=== PATIENT | female | born 1990 | race Caucasian/White ===

== ENCOUNTER 2016-06-14 22:27 | Emergency (ER) | payer MEDICAID ==
[2016-06-14 23:08] LABS: Urine Drugs of Abuse Note Disclamer
[2016-06-14 23:33] LABS: Basophils % (Auto) 0.6 % (0.0-1.8); Eosinophils % (Auto) 0.6 % (0.0-4.3); Hematocrit 38.4 % (30.3-42.9); Hemoglobin 13.3 gm/dl (10.1-14.3); Mean Corpuscular HGB Conc 35 % (30-34); Mean Corpuscular Hemoglobin 31 pg (28-32); Mean Corpuscular Volume 89 fl (79-97); Platelet Count 253 K/mm3 (140-440); Red Blood Count 4.29 M/mm3 (3.65-5.03); Red Cell Distribution Width 13.7 % (13.2-15.2)
[2016-06-14 23:38] LABS: Anion Gap 21 mmol/L; Blood Urea Nitrogen 9 mg/dL (7-17); Calcium 8.5 mg/dL (8.4-10.2); Carbon Dioxide 20 mmol/L (22-30); Chloride 92.3 mmol/L (98-107); Glucose 87 mg/dL (65-100); Potassium 4.1 mmol/L (3.6-5.0); Sodium 129 mmol/L (137-145)
[2016-06-14 23:55] LABS: Bacteria,Urine 1+ /HPF (Negative); Bilirubin,Urine NEG (Negative); Blood,Urine SM (Negative); Ketones,Urine TR mg/dL (Negative); Leukocyte Esterase,Urine TR (Negative); Nitrite,Urine NEG (Negative); Protein,Urine <15 mg/dL mg/dL (Negative); RBC,Urine < 1.0 /HPF (0.0-6.0); Urobilinogen,Urine < 2.0 mg/dL (<2.0)
--- NOTE | 2016-06-15 00:11 | Emergency Department Report ---
ED Psych HPI - General Chief Complaint: Psych Stated Complaint: REINIER EVAL Time Seen by Provider: 06/14/16 23:03 Source: EMS Mode of arrival: Ambulatory Limitations: Other (psychosis) - History of Present Illness Initial Comments: 26-year-old female with a past psychiatric history presents to the hospital with significant delusions. I'm unable to get any clear history from the patient due to acute psychosis. I attempted to call the number on the chart and it is disconnected. Patient arrived via EMS and trip sheet is not available at this time for review. Per triage family states the patient off medications for weeks and has been delusional. There are no reports as to what medication she is supposed to be on. P's medical record reviewed and no previous visit for psychiatric complaints in the past. 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 No physical complaints reported patient is agitated in the ED. - Related Data Home Medications Medication Instructions Recorded Confirmed Last Taken Unobtainable 06/15/16 06/15/16 Unknown Allergies Allergy/AdvReac Type Severity Reaction Status Date / Time No Known Allergies Allergy Verified 06/15/16 01:07 ED Review of Systems ROS: Stated complaint: MH EVAL Other details as noted in HPI Comment: Unobtainable due to pts medical conditions (Limited due to patient's psychosis but no physical complaints see HPI) ED Past Medical Hx - Social History Smoking Status: Current Every Day Smoker - Medications Home Medications: Home Medications Medication Instructions Recorded Confirmed Last Taken Type Unobtainable 06/15/16 06/15/16 Unknown History ED Physical Exam - General Limitations: Other - Other Other exam information: General: No limitations, patient is alert in no acute distress Head exam: Atraumatic, normocephalic Eyes exam: Normal appearance ENT: Moist mucous membrane, normal oropharynx Neck exam: Normal inspection, full range of motion Respiratory exam: Clear to auscultation bilateral, no wheezes, rales, crackles Cardiovascular: Mild tachycardia Abdomen: Soft, nondistended, and nontender, with normal bowel sounds, no rebound, or guarding Extremity: Full range of motion normal inspection no deformity Back: Normal Inspection, full range of motion, no tenderness Neurologic: Alert, oriented x3, cranial nerves intact, no motor or sensory deficit Psychiatric: Patient agitated, active delusions possible psychosis Skin: Warm, dry, intact ED Course Vital Signs 06/14/16 06/14/16 22:44 23:39 Temperature 98.6 F Pulse Rate 109 H Respiratory 20 20 Rate Blood Pressure 116/73 [Right] O2 Sat by Pulse 100 99 Oximetry - Reevaluation(s) Reevaluation #1: 06/15/16 02:07 Gabriel and Aviva ordered to calm patient down prior to IV fluids and ct scan 06/15/16 02:07 - Consultations Consultation #1: 06/15/16 02:04 Case d/w with Dr Tsang nephrology, iF sodium does not improve with 2 L of normal saline the patient may need admission and possible treatment with oral sodium tablets ED Medical Decision Making - Lab Data Result diagrams: 06/14/16 22:58 06/14/16 22:58 Lab Results 06/14/16 06/14/16 06/14/16 Range/Units 22:47 22:47 22:58 WBC 11.0 (4.5-11.0) K/mm3 RBC 4.29 (3.65-5.03) M/mm3 Hgb 13.3 (10.1-14.3) gm/dl Hct 38.4 (30.3-42.9) % MCV 89 (79-97) fl MCH 31 (28-32) pg MCHC 35 H (30-34) % RDW 13.7 (13.2-15.2) % Plt Count 253 (140-440) K/mm3 Lymph % (Auto) 18.1 (13.4-35.0) % [place] % (Auto) 7.5 H (0.0-7.3) % Eos % (Auto) 0.6 (0.0-4.3) % Baso % (Auto) 0.6 (0.0-1.8) % Lymph # 2.0 (1.2-5.4) K/mm3 [place] # 0.8 (0.0-0.8) K/mm3 Eos # 0.1 (0.0-0.4) K/mm3 Baso # 0.1 (0.0-0.1) K/mm3 Seg Neutrophils % 73.2 H (40.0-70.0) % Seg Neutrophils # 8.0 H (1.8-7.7) K/mm3 Sodium (137-145) mmol/L Potassium (3.6-5.0) mmol/L Chloride (98-107) mmol/L Carbon Dioxide (22-30) mmol/L Anion Gap mmol/L BUN (7-17) mg/dL Creatinine (0.7-1.2) mg/dL Estimated GFR ml/min BUN/Creatinine Ratio % Glucose (65-100) mg/dL Calcium (8.4-10.2) mg/dL Total Creatine Kinase (30-135) units/L HCG, Qual (Negative) Urine Color Straw (Yellow) Urine Turbidity Clear (Clear) Urine pH 6.0 (5.0-7.0) Ur Specific [place] 1.001 L (1.003-1.030) Urine Protein <15 mg/dl (Negative) mg/dL Urine Glucose (UA) Neg (Negative) mg/dL Urine Ketones Tr (Negative) mg/dL Urine Blood Sm (Negative) Urine Nitrite Neg (Negative) Ur Reducing Substances Not Reportable Urine Bilirubin Neg (Negative) Urine Ictotest Not Reportable Urine Urobilinogen < 2.0 (<2.0) mg/dL Ur Leukocyte Esterase Tr (Negative) Urine WBC (Auto) 1.0 (0.0-6.0) /HPF Urine RBC (Auto) < 1.0 (0.0-6.0) /HPF U Epithel Cells (Auto) 1.0 (0-13.0) /HPF Urine Bacteria (Auto) 1+ (Negative) /HPF Calcium Oxalate Crystal 1+ Urine HCG, Qual Negative (Negative) Salicylates (2.8-20.0) mg/dL Urine Opiates Screen Presumptive negative Urine Methadone Screen Presumptive negative Acetaminophen (10.0-30.0) ug/mL Ur Barbiturates Screen Presumptive negative Ur Phencyclidine Scrn Presumptive negative Ur Amphetamines Screen Presumptive positive U Benzodiazepines Scrn Presumptive negative Urine Cocaine Screen Presumptive negative U Marijuana (THC) Screen Presumptive negative Drugs of Abuse Note Disclamer Plasma/Serum Alcohol (0-0.07) gm% 06/14/16 06/14/16 06/14/16 Range/Units 22:58 22:58 22:58 WBC (4.5-11.0) K/mm3 RBC (3.65-5.03) M/mm3 Hgb (10.1-14.3) gm/dl Hct (30.3-42.9) % MCV (79-97) fl MCH (28-32) pg MCHC (30-34) % RDW (13.2-15.2) % Plt Count (140-440) K/mm3 Lymph % (Auto) (13.4-35.0) % [place] % (Auto) (0.0-7.3) % Eos % (Auto) (0.0-4.3) % Baso % (Auto) (0.0-1.8) % Lymph # (1.2-5.4) K/mm3 [place] # (0.0-0.8) K/mm3 Eos # (0.0-0.4) K/mm3 Baso # (0.0-0.1) K/mm3 Seg Neutrophils % (40.0-70.0) % Seg Neutrophils # (1.8-7.7) K/mm3 Sodium 129 L (137-145) mmol/L Potassium 4.1 (3.6-5.0) mmol/L Chloride 92.3 L (98-107) mmol/L Carbon Dioxide 20 L (22-30) mmol/L Anion Gap 21 mmol/L BUN 9 (7-17) mg/dL Creatinine 0.6 L (0.7-1.2) mg/dL Estimated GFR > 60 ml/min BUN/Creatinine Ratio 15.00 % Glucose 87 (65-100) mg/dL Calcium 8.5 (8.4-10.2) mg/dL Total Creatine Kinase (30-135) units/L HCG, Qual (Negative) Urine Color (Yellow) Urine Turbidity (Clear) Urine pH (5.0-7.0) Ur Specific [place] (1.003-1.030) Urine Protein (Negative) mg/dL Urine Glucose (UA) (Negative) mg/dL Urine Ketones (Negative) mg/dL Urine Blood (Negative) Urine Nitrite (Negative) Ur Reducing Substances Urine Bilirubin (Negative) Urine Ictotest Urine Urobilinogen (<2.0) mg/dL Ur Leukocyte Esterase (Negative) Urine WBC (Auto) (0.0-6.0) /HPF Urine RBC (Auto) (0.0-6.0) /HPF U Epithel Cells (Auto) (0-13.0) /HPF Urine Bacteria (Auto) (Negative) /HPF Calcium Oxalate Crystal Urine HCG, Qual (Negative) Salicylates < 0.3 L (2.8-20.0) mg/dL Urine Opiates Screen Urine Methadone Screen Acetaminophen < 15.0 (10.0-30.0) ug/mL Ur Barbiturates Screen Ur Phencyclidine Scrn Ur Amphetamines Screen U Benzodiazepines Scrn Urine Cocaine Screen U Marijuana (THC) Screen Drugs of Abuse Note Plasma/Serum Alcohol (0-0.07) gm% 06/14/16 06/14/16 06/14/16 Range/Units 22:58 22:58 22:58 WBC (4.5-11.0) K/mm3 RBC (3.65-5.03) M/mm3 Hgb (10.1-14.3) gm/dl Hct (30.3-42.9) % MCV (79-97) fl MCH (28-32) pg MCHC (30-34) % RDW (13.2-15.2) % Plt Count (140-440) K/mm3 Lymph % (Auto) (13.4-35.0) % [place] % (Auto) (0.0-7.3) % Eos % (Auto) (0.0-4.3) % Baso % (Auto) (0.0-1.8) % Lymph # (1.2-5.4) K/mm3 [place] # (0.0-0.8) K/mm3 Eos # (0.0-0.4) K/mm3 Baso # (0.0-0.1) K/mm3 Seg Neutrophils % (40.0-70.0) % Seg Neutrophils # (1.8-7.7) K/mm3 Sodium (137-145) mmol/L Potassium (3.6-5.0) mmol/L Chloride (98-107) mmol/L Carbon Dioxide (22-30) mmol/L Anion Gap mmol/L BUN (7-17) mg/dL Creatinine (0.7-1.2) mg/dL Estimated GFR ml/min BUN/Creatinine Ratio % Glucose (65-100) mg/dL Calcium (8.4-10.2) mg/dL Total Creatine Kinase 1606 H (30-135) units/L HCG, Qual Negative (Negative) Urine Color (Yellow) Urine Turbidity (Clear) Urine pH (5.0-7.0) Ur Specific [place] (1.003-1.030) Urine Protein (Negative) mg/dL Urine Glucose (UA) (Negative) mg/dL Urine Ketones (Negative) mg/dL Urine Blood (Negative) Urine Nitrite (Negative) Ur Reducing Substances Urine Bilirubin (Negative) Urine Ictotest Urine Urobilinogen (<2.0) mg/dL Ur Leukocyte Esterase (Negative) Urine WBC (Auto) (0.0-6.0) /HPF Urine RBC (Auto) (0.0-6.0) /HPF U Epithel Cells (Auto) (0-13.0) /HPF Urine Bacteria (Auto) (Negative) /HPF Calcium Oxalate Crystal Urine HCG, Qual (Negative) Salicylates (2.8-20.0) mg/dL Urine Opiates Screen Urine Methadone Screen Acetaminophen (10.0-30.0) ug/mL Ur Barbiturates Screen Ur Phencyclidine Scrn Ur Amphetamines Screen U Benzodiazepines Scrn Urine Cocaine Screen U Marijuana (THC) Screen Drugs of Abuse Note Plasma/Serum Alcohol < 0.01 (0-0.07) gm% - Medical Decision Making 1013 and transfer form has been signed. It appears the patient has a psychiatric history. Unable to verify that with next of kin or previous medical record at this time. Psychiatric consult pending. Patient has mild hyponatremia cause unidentified this time. Awaiting urinalysis electrolyte results as of 1:55 AM. Patient's UDS positive for amphetamine spur unsure if she is abusing amphetamine's or one of her prescribed medications causing a false positive PT s/o to Dr spaulding f/u ct head (unable to verify previous psych hx) f/u repeat bmp after 2 L NS if no improvement in NA, CHL, CK, pt will need admission - Differential Diagnosis psychosis, delusion, bipolar Critical Care Time: No Critical care attestation.: If time is entered above; I have spent that time in minutes in the direct care of this critically ill patient, excluding procedure time. ED Disposition Clinical Impression: Psychosis, Delusions, Hyponatremia, Elevated CK, Amphetamine abuse Disposition: DC/TX PSY HOSP/PSY UNIT Is pt being admited?: No Condition: Stable Time of Disposition: 02:10 (s/o Dr Spaulding)
[2016-06-15] MEDS ORDERED: BENADRYL IM ONE (00:12)
[2016-06-15] MEDS ORDERED: GEODON IM ONE ×2 (00:12→00:13)
[2016-06-15] MEDS ORDERED: NACL 0.9% 1000 ML 1,000 ML IV ONE ×2 (00:14→01:57)
[2016-06-15] MEDS ORDERED: WATER FOR INJ (PF) 10 ML ONE (01:00)
--- NOTE | 2016-06-15 03:12 | Cat Scan Report ---
FINAL REPORT EXAM: CT HEAD/BRAIN WO CON HISTORY: delusions, psychosis TECHNIQUE: Noncontrast CT axial images of the brain. PRIORS: None. FINDINGS: No parenchymal mass, mass effect, hemorrhage, midline shift or hydrocephalus. No evidence of acute cortical infarct. No abnormal, extra-axial fluid or air collection. Osseous calvarium grossly intact. IMPRESSION: 1. No acute intracranial findings.
[2016-06-15 04:35] LABS: Anion Gap 18 mmol/L; Blood Urea Nitrogen 7 mg/dL (7-17); Calcium 7.9 mg/dL (8.4-10.2); Carbon Dioxide 21 mmol/L (22-30); Chloride 106.5 mmol/L (98-107); Creatine Kinase 1356 units/L (30-135); Glucose 76 mg/dL (65-100); Sodium 141 mmol/L (137-145)
--- NOTE | 2016-06-15 05:15 | Event Note ---
Date: 06/15/16 Laboratory studies reviewed and appreciated. Sodium has normalized. Creatinine kinase is decreasing. Noncontrast CT scan of brain is negative. Urinalysis positive for amphetamines. The creatinine kinase will continue to decrease on its own. The sodium has appropriately normalized. Vital signs appear to be stable. At this point in time, it does not appear that there is any medical contraindication to psychiatric medicines as evaluation/ consultation. Crisis team was informed. Vital Signs 06/14/16 06/14/16 06/15/16 22:44 23:39 03:36 Temperature 98.6 F 98.0 F Pulse Rate 109 H 80 Respiratory 20 20 20 Rate Blood Pressure 116/73 163/53 [Right] O2 Sat by Pulse 100 99 100 Oximetry Temp Pulse Resp BP Pulse Ox 98.0 F 80 20 163/53 100 06/15/16 03:36 06/15/16 03:36 06/15/16 03:36 06/15/16 03:36 06/15/16 03:36 Vital Signs 06/14/16 06/14/16 06/15/16 22:44 23:39 03:36 Temperature 98.6 F 98.0 F Pulse Rate 109 H 80 Respiratory 20 20 20 Rate Blood Pressure 116/73 163/53 [Right] O2 Sat by Pulse 100 99 100 Oximetry
[2016-06-15 09:06] VITALS: BP 116/72
== END 2016-06-15 14:30 ==
LOC: EEVIPCON 22:27 → ED 22:27
DX: F22 Delusional disorders (principal); F29 Unspecified psychosis not due to a substance or known physiological condition; E87.1 Hypo-osmolality and hyponatremia; F15.10 Other stimulant abuse, uncomplicated; F17.200 Nicotine dependence, unspecified, uncomplicated
CPT/HCPCS: 36415; 70450; 80048; 80307; 81001; 81025; 82550; 82570; 83930; 83935; 84300; 84703; 85025; 96360; 96361; 96372; 99285; G0480; J1200; J3486; J7030; 80320

== ENCOUNTER 2016-10-07 03:27 | Emergency (ER) | payer MEDICAID ==
[2016-10-07 04:24] LABS: Basophils % (Auto) 0.6 % (0.0-1.8); Eosinophils % (Auto) 3.7 % (0.0-4.3); Hematocrit 41.4 % (30.3-42.9); Hemoglobin 14.1 gm/dl (10.1-14.3); Mean Corpuscular HGB Conc 34 % (30-34); Mean Corpuscular Hemoglobin 30 pg (28-32); Mean Corpuscular Volume 89 fl (79-97); Platelet Count 278 K/mm3 (140-440); Red Blood Count 4.67 M/mm3 (3.65-5.03); White Blood Count 11.6 K/mm3 (4.5-11.0)
[2016-10-07 04:32] LABS: Anion Gap 19 mmol/L; Blood Urea Nitrogen 9 mg/dL (7-17); Calcium 9.3 mg/dL (8.4-10.2); Carbon Dioxide 23 mmol/L (22-30); Chloride 95.2 mmol/L (98-107); Glucose 78 mg/dL (65-100); Sodium 133 mmol/L (137-145)
--- NOTE | 2016-10-07 07:04 | Emergency Department Report ---
HPI - General Chief Complaint: Psych Time Seen by Provider: 10/07/16 06:54 - HPI HPI: Room 11 The patient is a 26-year-old female presenting with a chief complaint of auditory hallucinations. Patient has a history of bipolar disorder. The patient states she's had auditory hallucinations since age 15. Patient states today while walking to the hospital. 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 The patient states she last took her Zyprexa yesterday. Patient states she came to the emergency department to find out if she was . Patient denies any other complaints Location: [see above] Duration: [see above] Quality: Auditory hallucination Severity: Mild Modifying factors: [see above] Context: [see above] Mode of transportation: [not driving] ED Past Medical Hx - Past Medical History Previous Medical History?: Yes Hx Psychiatric Treatment: Yes (BIPOLAR) - Surgical History Past Surgical History?: No Additional Surgical History: Right arm, right hip - Family History Family history: no significant - Social History Smoking Status: Current Every Day Smoker (1/2 pack per day) Substance Use Type: Alcohol (occasional), Methamphetamines (last use approximately 2 months ago) - Medications Home Medications: Home Medications Medication Instructions Recorded Confirmed Last Taken Type Unobtainable 06/15/16 06/15/16 Unknown History ED Review of Systems ROS: Stated complaint: VAGINAL ODOR Other details as noted in HPI Comment: All other systems reviewed and negative Constitutional: denies: chills, fever Eyes: denies: eye pain, eye discharge, vision change ENT: denies: ear pain, throat pain Respiratory: denies: cough, shortness of breath, wheezing Cardiovascular: denies: chest pain, palpitations Endocrine: no symptoms reported Gastrointestinal: denies: abdominal pain, nausea, diarrhea Genitourinary: denies: urgency, dysuria, discharge Musculoskeletal: denies: back pain, joint swelling, arthralgia Skin: denies: rash, lesions Neurological: denies: headache, weakness, paresthesias Psychiatric: auditory hallucinations. denies: homicidal thoughts, suicidal thoughts Hematological/Lymphatic: denies: easy bleeding, easy bruising Physical Exam - Physical Exam Vital Signs: Vital Signs 10/07/16 03:33 Temperature 98.8 F Pulse Rate 109 H Respiratory 18 Rate Blood Pressure 115/69 O2 Sat by Pulse 98 Oximetry Physical Exam: GENERAL: The patient is well-developed well-nourished female lying on stretcher not appearing to be in acute distress. [] HEENT: Normocephalic. Atraumatic. Extraocular motions are intact. Patient has moist mucous membranes. NECK: Supple. Trachea midline CHEST/LUNGS: Clear to auscultation. There is no respiratory distress noted. HEART/CARDIOVASCULAR: Regular. There is no tachycardia. There is no gallop rub or murmur. ABDOMEN: Abdomen is soft, nontender. Patient has normal bowel sounds. There is no abdominal distention. SKIN: There is no rash. There is no edema. There is no diaphoresis. NEURO: The patient is awake, alert, and oriented. The patient is cooperative. The patient has normal speech MUSCULOSKELETAL: There is no evidence of acute injury. ED Course Vital Signs 10/07/16 03:33 Temperature 98.8 F Pulse Rate 109 H Respiratory 18 Rate Blood Pressure 115/69 O2 Sat by Pulse 98 Oximetry ED Medical Decision Making - Lab Data Result diagrams: 10/07/16 04:04 10/07/16 04:04 Laboratory Tests 10/07/16 10/07/16 10/07/16 04:04 04:04 04:04 WBC RBC Hgb Hct MCV MCH MCHC RDW Plt Count Lymph % (Auto) [place] % (Auto) Eos % (Auto) Baso % (Auto) Lymph # [place] # Eos # Baso # Seg Neutrophils % Seg Neutrophils # Sodium 133 L Potassium 4.0 Chloride 95.2 L Carbon Dioxide 23 Anion Gap 19 BUN 9 Creatinine 0.6 L Estimated GFR > 60 BUN/Creatinine Ratio 15.00 Glucose 78 Calcium 9.3 HCG, Qual Negative Urine Color Urine Turbidity Urine pH Ur Specific [place] Urine Protein Urine Glucose (UA) Urine Ketones Urine Blood Urine Nitrite Urine Bilirubin Urine Urobilinogen Ur Leukocyte Esterase Urine WBC (Auto) Urine RBC (Auto) U Epithel Cells (Auto) Urine Bacteria (Auto) Amorphous Crystals Urine Opiates Screen Urine Methadone Screen Ur Barbiturates Screen Ur Phencyclidine Scrn Ur Amphetamines Screen U Benzodiazepines Scrn Urine Cocaine Screen U Marijuana (THC) Screen Drugs of Abuse Note Plasma/Serum Alcohol < 0.01 10/07/16 10/07/16 10/07/16 04:04 05:00 05:00 WBC 11.6 H RBC 4.67 Hgb 14.1 Hct 41.4 MCV 89 MCH 30 MCHC 34 RDW 14.0 Plt Count 278 Lymph % (Auto) 20.1 [place] % (Auto) 7.2 Eos % (Auto) 3.7 Baso % (Auto) 0.6 Lymph # 2.3 [place] # 0.8 Eos # 0.4 Baso # 0.1 Seg Neutrophils % 68.4 Seg Neutrophils # 7.9 H Sodium Potassium Chloride Carbon Dioxide Anion Gap BUN Creatinine Estimated GFR BUN/Creatinine Ratio Glucose Calcium HCG, Qual Urine Color Colorless Urine Turbidity Clear Urine pH 6.0 Ur Specific [place] 1.001 L Urine Protein <15 mg/dl Urine Glucose (UA) Neg Urine Ketones Neg Urine Blood Sm Urine Nitrite Neg Urine Bilirubin Neg Urine Urobilinogen < 2.0 Ur Leukocyte Esterase Lg Urine WBC (Auto) 4.0 Urine RBC (Auto) 2.0 U Epithel Cells (Auto) 2.0 Urine Bacteria (Auto) 2+ Amorphous Crystals Few Urine Opiates Screen Presumptive negative Urine Methadone Screen Presumptive negative Ur Barbiturates Screen Presumptive negative Ur Phencyclidine Scrn Presumptive negative Ur Amphetamines Screen Presumptive negative U Benzodiazepines Scrn Presumptive negative Urine Cocaine Screen Presumptive negative U Marijuana (THC) Screen Presumptive negative Drugs of Abuse Note Disclamer Plasma/Serum Alcohol - Differential Diagnosis bipolar disorder Critical care attestation.: If time is entered above; I have spent that time in minutes in the direct care of this critically ill patient, excluding procedure time. ED Disposition Clinical Impression: Bipolar disorder, Auditory hallucinations Disposition: DC-01 TO HOME OR SELFCARE Is pt being admited?: No Does the pt Need Aspirin: No Condition: Stable Additional Instructions: Return to the emergency department immediately should you develop worsening symptoms, fever, inability to tolerate food or liquid or any other concerns. Referrals: PRIMARY CARE [Primary Care Provider] - 3-5 Days Time of Disposition: 08:14
[2016-10-07 07:15] LABS: Urine Drugs of Abuse Note Disclamer
[2016-10-07 07:26] LABS: Bacteria,Urine 2+ /HPF (Negative); Bilirubin,Urine NEG (Negative); Blood,Urine SM (Negative); Ketones,Urine NEG (Negative); Leukocyte Esterase,Urine LG (Negative); Nitrite,Urine NEG (Negative); Protein,Urine <15 mg/dL mg/dL (Negative); Urobilinogen,Urine < 2.0 mg/dL (<2.0)
[2016-10-07 09:28] VITALS: BP 112/68
== END 2016-10-07 08:30 | disposition home or self-care (01) ==
LOC: ED 03:27
DX: F31.9 Bipolar disorder, unspecified (principal); F17.210 Nicotine dependence, cigarettes, uncomplicated; F15.10 Other stimulant abuse, uncomplicated
CPT/HCPCS: 36415; 80048; 80307; 81001; 84703; 85025; 99284; G0480; 80320

== ENCOUNTER 2017-01-26 19:25 | Emergency (ER) | payer MEDICAID ==
[2017-01-26 19:31] VITALS: BP 140/80
== END 2017-01-26 21:00 | disposition left against medical advice (07) ==
LOC: ED 19:25
DX: Z53.21 Procedure and treatment not carried out due to patient leaving prior to being seen by health care provider (principal)

== ENCOUNTER 2018-09-10 09:50 | Emergency (ER) | payer MEDICAID ==
[2018-09-10 10:32] LABS: Basophils # (Auto) 0.1 K/mm3 (0.0-0.1); Basophils % (Auto) 0.7 % (0.0-1.8); Eosinophils # (Auto) 0.3 K/mm3 (0.0-0.4); Eosinophils % (Auto) 3.3 % (0.0-4.3); Hematocrit 41.9 % (30.3-42.9); Hemoglobin 14.3 gm/dl (10.1-14.3); Lymphocytes # (Auto) 2.7 K/mm3 (1.2-5.4); Mean Corpuscular HGB Conc 34 % (30-34); Mean Corpuscular Volume 87 fl (79-97); Monocytes # (Auto) 0.5 K/mm3 (0.0-0.8); Monocytes % (Auto) 4.6 % (0.0-7.3); Platelet Count 314 K/mm3 (140-440); Red Blood Count 4.81 M/mm3 (3.65-5.03); Red Cell Distribution Width 14.4 % (13.2-15.2)
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
[2018-09-10 11:10] LABS: BUN/Creatinine Ratio 6; Blood Urea Nitrogen 5 mg/dL (7-17); Calcium 8.9 mg/dL (8.4-10.2); Hemolysis Index 49
[2018-09-11 09:29] LABS: Bilirubin,Urine NEG (Negative); Blood,Urine NEG (Negative); Color,Urine Yellow (Yellow); Mucus,Urine 3+ /HPF; Protein,Urine <15 mg/dL mg/dL (Negative); Urobilinogen,Urine < 2.0 mg/dL (<2.0)
[2018-09-11 09:52] LABS: Amphetamine Screen,Urine PRESUMPTIVE NEGATIVE; Benzodiazepines Screen,Urine PRESUMPTIVE NEGATIVE; Cannabinoid Screen,Urine PRESUMPTIVE NEGATIVE; Cocaine Screen,Urine PRESUMPTIVE NEGATIVE; Methadone Screen,Urine PRESUMPTIVE NEGATIVE; Opiate Screen,Urine PRESUMPTIVE NEGATIVE
[2018-09-11 12:06] VITALS: BP 105/53
[2018-09-11 12:21] LABS: HCG Qualitative,Urine Negative (Negative)
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
[2018-09-11] MEDS ORDERED: ABILIFY PO SCH (13:00)
== END 2018-09-11 16:59 ==
LOC: ED 09:50
DX: F31.9 Bipolar disorder, unspecified (principal); F20.9 Schizophrenia, unspecified; Z89.612 Acquired absence of left leg above knee; Z87.891 Personal history of nicotine dependence; Z79.899 Other long term (current) drug therapy
CPT/HCPCS: 36415; 80048; 80307; 80320; 81001; 81025; 84450; 84460; 85025; 99285; G0480

== ENCOUNTER 2018-10-16 00:28 | Emergency (ER) | payer MEDICAID ==
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
[2018-10-16] MEDS ORDERED: DESYREL PO ONE (01:16)
[2018-10-16 01:35] LABS: Bilirubin,Urine NEG (Negative); Blood,Urine NEG (Negative); Color,Urine Colorless (Yellow); Protein,Urine <15 mg/dL mg/dL (Negative); Urobilinogen,Urine < 2.0 mg/dL (<2.0)
[2018-10-16 01:44] LABS: Basophils # (Auto) 0.1 K/mm3 (0.0-0.1); Eosinophils # (Auto) 0.4 K/mm3 (0.0-0.4); Eosinophils % (Auto) 4.4 % (0.0-4.3); Hemoglobin 14.6 gm/dl (10.1-14.3); Lymphocytes # (Auto) 2.2 K/mm3 (1.2-5.4); Lymphocytes % (Auto) 22.6 % (13.4-35.0); Mean Corpuscular HGB Conc 35 % (30-34); Mean Corpuscular Volume 86 fl (79-97); Monocytes # (Auto) 0.6 K/mm3 (0.0-0.8); Monocytes % (Auto) 6.7 % (0.0-7.3); Platelet Count 302 K/mm3 (140-440); Red Blood Count 4.87 M/mm3 (3.65-5.03); Red Cell Distribution Width 14.4 % (13.2-15.2)
[2018-10-16 02:01] LABS: Amphetamine Screen,Urine PRESUMPTIVE NEGATIVE; Benzodiazepines Screen,Urine PRESUMPTIVE NEGATIVE; Cannabinoid Screen,Urine PRESUMPTIVE NEGATIVE; Cocaine Screen,Urine PRESUMPTIVE NEGATIVE; Methadone Screen,Urine PRESUMPTIVE NEGATIVE; Opiate Screen,Urine PRESUMPTIVE NEGATIVE
[2018-10-16 02:04] LABS: BUN/Creatinine Ratio 10; Blood Urea Nitrogen 6 mg/dL (7-17); Calcium 8.9 mg/dL (8.4-10.2); Hemolysis Index 6
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
[2018-10-16] MEDS ORDERED: MELATONIN PO SCH (22:00)
[2018-10-17 10:38] VITALS: BP 117/66
--- NOTE | 2018-10-17 12:44 | Progress Note ---
Subjective - Reason for Consult Consult date: 10/17/18 Reason for consult: Psychiatry Follow-up - Chief Complaint Chief complaint: "I know I have to do better" 28 y.o. female who presented to the ER with acute psychosis. This patient is known to me. Today the patient was cam and cooperative during the assessment. She stated that she should not have called the police prior to her arrival to the ER. She stated that she was upset with something at her home and could have handled it in a better way. She denies being "Aimee Bailey." She denies that someone or something is after her. She stated that she plan to follow up with her outpatient psychiatrist once discharged. She stated that she got sleep last night. She denies SI/HI's and AVH's. Mental Status Exam - Vital signs Last Vital Signs Temp 98.5 F 10/17/18 10:37 Pulse 83 10/17/18 10:37 Resp 18 10/17/18 10:37 BP 117/66 10/17/18 10:37 Pulse Ox 98 10/17/18 10:37 - Exam Narrative exam: MSE: Appearance: calm Behavior: regular eye contact Speech: somewhat hyper verbal Mood: "okay" Affect: congruent to mood Thought Process: circumstantial Thought Content: denies SI/HI's and AVH's Motor Activity: sitting up in bed Cognition: A/O x3 Insight: fair Judgment: fair Assessment and Plan Impression: Unspecified Psychosis. The patient's psychosis have resolved. The patient was calm and cooperative during the assessment. UDS is negative. DDx: Bipolar DO with psyhcosis, Delusional DO Recommendation/Plan: Rescind 1013. The patient receive the monthly Abilify injection. Dispo: The patient can follow up with [facility] for outpatient psy services. Will staff with Dr Marcella Hadley.
== END 2018-10-17 16:51 ==
LOC: EEVIPCON 00:28 → ED 00:28
DX: F23 Brief psychotic disorder (principal); Z89.612 Acquired absence of left leg above knee; Z79.899 Other long term (current) drug therapy
CPT/HCPCS: 36415; 80048; 80307; 80320; 81001; 84703; 85025; 99284; G0480

== ENCOUNTER 2018-11-07 06:25 | Emergency (ER) | payer MEDICAID ==
[2018-11-07 07:12] LABS: Bilirubin,Urine NEG (Negative); Blood,Urine SM (Negative); Color,Urine Colorless (Yellow); Mucus,Urine FEW /HPF; Protein,Urine <15 mg/dL mg/dL (Negative); RBC,Urine < 1.0 /HPF (0.0-6.0); Urobilinogen,Urine < 2.0 mg/dL (<2.0); WBC,Urine < 1.0 /HPF (0.0-6.0)
[2018-11-07 07:20] LABS: Amphetamine Screen,Urine PRESUMPTIVE NEGATIVE; Benzodiazepines Screen,Urine PRESUMPTIVE NEGATIVE; Cannabinoid Screen,Urine PRESUMPTIVE NEGATIVE; Cocaine Screen,Urine PRESUMPTIVE NEGATIVE; Methadone Screen,Urine PRESUMPTIVE NEGATIVE; Opiate Screen,Urine PRESUMPTIVE NEGATIVE
[2018-11-07 07:28] LABS: Basophils # (Auto) 0.1 K/mm3 (0.0-0.1); Eosinophils # (Auto) 0.2 K/mm3 (0.0-0.4); Hematocrit 42.7 % (30.3-42.9); Hemoglobin 14.4 gm/dl (10.1-14.3); Lymphocytes # (Auto) 2.4 K/mm3 (1.2-5.4); Lymphocytes % (Auto) 28.9 % (13.4-35.0); Mean Corpuscular HGB Conc 34 % (30-34); Mean Corpuscular Volume 86 fl (79-97); Monocytes # (Auto) 0.6 K/mm3 (0.0-0.8); Monocytes % (Auto) 6.6 % (0.0-7.3); Platelet Count 329 K/mm3 (140-440); Red Blood Count 4.96 M/mm3 (3.65-5.03); Red Cell Distribution Width 14.2 % (13.2-15.2)
[2018-11-07 09:51] LABS: BUN/Creatinine Ratio 9; Blood Urea Nitrogen 7 mg/dL (7-17); Hemolysis Index 61
[2018-11-07] MEDS ORDERED: ALUM-MAG HYDROXIDE-SIMETHICONE 200-200-20MG/5ML ORAL LIQD 30 ML PO PRN (10:39)
[2018-11-07] MEDS ORDERED: MAGNESIUM HYDROXIDE (MOM) ORAL LIQD UDC PO PRN (10:39)
[2018-11-07] MEDS ORDERED: ACETAMINOPHEN 325 MG TAB PO PRN (10:39)
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
[2018-11-07] MEDS ORDERED: traZODone 50 MG TAB PO PRN (10:49)
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
[2018-11-07 12:26] LABS: Alanine Aminotransferase 24 units/L (7-56)
[2018-11-07] MEDS ORDERED: traZODone 50 MG TAB PO SCH (22:00)
[2018-11-07] MEDS: DIVALPROEX ER 500 MG TAB PO SCH (22:40)
[2018-11-08 07:25] LABS: Chol/HDL Ratio 4.08 %
--- NOTE | 2018-11-08 14:01 | Progress Note ---
Subjective - Reason for Consult Consult date: 11/08/18 Reason for consult: Psychiatric Follow-up Evaluation - Chief Complaint Chief complaint: "I'm alright." Patient is a 28-year-old female who presented to the ER for acute psychosis. The patient is known to me. Today the patient is cooperative but anxious during the assessment. She states, " I'm here because I was hearing voices. They were telling me this is where it's going to end and there are going to be zombies." She continues to have tangential thought process. Patient denies SI/HI's and delusions. Mental Status Exam - Vital signs Last Vital Signs Temp 98.2 F 11/08/18 07:00 Pulse 95 H 11/08/18 07:00 Resp 20 11/08/18 07:00 BP 113/77 11/08/18 07:00 Pulse Ox 93 11/08/18 07:00 - Exam Narrative exam: Mental Status Exam: Appearance: disheveled Behavior: regular eye contact Speech: regular rate and tone Mood: " I'm alright."; Labile Affect: congruent to mood Thought Process: tangential Thought Content: denies SI/HI's and VH's; + AH's and paranoid delusions Motor Activity: sitting up in bed Cognition: A/O x 3 Insight: poor Judgment: poor Assessment and Plan Impression: Unspecified Mood with psy features. The patient is cooperative but anxious during the assessment. She continues to have tangential thought process. Attempting to minimize psychosis. UDS is negative. DDx: Bipolar DO with psychosis, Delusional DO Recommendation/Plan: 1. Continue 1013. 2. Continue Zyprexa 5 mg PO HS for psychosis/mood, Trazodone 50 mg PO HS PRN for sleep, and Depakote 1000 mg PO HS for mood. The patient's Depakote frequency will be changed to BID on 11/08/2018. Attempted to discuss possible metabolic side effects of Zyprexa with the patient. Baseline A1c/Lipid Panel ordered for the AM. Disposition: The patient was referred to inpatient psychiatric services. Will staff with Dr. Marcella Hadley.
[2018-11-08] MEDS: DIVALPROEX ER 500 MG TAB PO SCH (23:00)
[2018-11-09 09:36] VITALS: BP 137/68
--- NOTE | 2018-11-09 09:36 | Progress Note ---
Subjective - Reason for Consult Consult date: 11/09/18 Reason for consult: Psychiatry Follow-up - Chief Complaint Chief complaint: "I would like to leave" Patient is a 28-year-old female who presented to the ER for acute psychosis. The patient is known to me. Today the patient was calm and cooperative during the assessment. She is more organized. She denies seeing objects/images when asked. She that she plan to follow up with outpatient psy services. She denies SI/HI's and AVH's. She denies any side effects from her medication. Mental Status Exam - Vital signs Last Vital Signs Temp 98.6 F 11/08/18 20:00 Pulse 87 11/08/18 20:00 Resp 16 11/08/18 20:00 BP 97/54 11/08/18 20:00 Pulse Ox 100 11/08/18 20:00 - Exam Narrative exam: MSE: Appearance: calm, cooperative Behavior: regular eye contact Speech: regular rate and tone Mood: "okay" Affect: congruent to mood Thought Process: more organized Thought Content: denies SI/HI's and AVH's Motor Activity: sitting up in bed Cognition: A/O x3 Insight: fair Judgment: fair Assessment and Plan Impression: Unspecified Mood with psy features. No overt psychosis with the patient. The patient was calm and cooperative during the assessment. UDS is negative. DDx: Bipolar DO with psychosis, Delusional DO Recommendation/Plan: Rescind 1013. Continue Zyprexa 5 mg PO HS for psychosis/mood, Trazodone 50 mg PO HS PRN for sleep, and Depakote 500 mg PO BID for mood. Discussed possible metabolic side effects of Zyprexa with the patient, she verbalized understanding. Dispo: The patient can follow up with [facility] ([facility]) for outpatient psy services. Staffed with Dr Marcella Hadley.
[2018-11-09] MEDS ORDERED: DIVALPROEX ER 500 MG TAB PO SCH (10:00)
== END 2018-11-09 15:11 | disposition home or self-care (01) ==
LOC: EEVIPCON 06:25 → ED 06:25
DX: F39 Unspecified mood [affective] disorder (principal); F17.200 Nicotine dependence, unspecified, uncomplicated; F20.0 Paranoid schizophrenia; F31.9 Bipolar disorder, unspecified; Z98.890 Other specified postprocedural states; Z79.899 Other long term (current) drug therapy
CPT/HCPCS: 36415; 80048; 80061; 80164; 80307; 80320; 81001; 83036; 84075; 84450; 84460; 84703; 85025; G0480

== ENCOUNTER 2019-01-16 19:21 | Emergency (ER) | payer MEDICAID ==
[2019-01-16] MEDS ORDERED: LORazepam 2 MG/ML VIAL IM PRN (20:28)
[2019-01-16] MEDS ORDERED: HALOPERIDOL LACTATE 5 MG/1 ML INJ IM PRN (20:28)
[2019-01-16] MEDS ORDERED: ZIPRASIDONE MESYLATE 20 MG VIAL IM ONE (20:29)
[2019-01-16 21:24] LABS: Hemoglobin 14.6 gm/dl (10.1-14.3); Mean Corpuscular HGB Conc 34 % (30-34); Mean Corpuscular Volume 88 fl (79-97); Platelet Count 321 K/mm3 (140-440); Red Blood Count 4.89 M/mm3 (3.65-5.03); Red Cell Distribution Width 14.3 % (13.2-15.2)
[2019-01-16 21:34] LABS: BUN/Creatinine Ratio 12; Blood Urea Nitrogen 7 mg/dL (7-17); Calcium 9.4 mg/dL (8.4-10.2); Hemolysis Index 19
[2019-01-16 21:43] LABS: Bilirubin,Urine NEG (Negative); Blood,Urine SM (Negative); Calcium Oxalate Crystals,Urine FEW; Color,Urine Straw (Yellow); Protein,Urine <15 mg/dL mg/dL (Negative); Urobilinogen,Urine < 2.0 mg/dL (<2.0)
[2019-01-16 21:48] LABS: Amphetamine Screen,Urine PRESUMPTIVE NEGATIVE; Benzodiazepines Screen,Urine PRESUMPTIVE NEGATIVE; Cannabinoid Screen,Urine PRESUMPTIVE NEGATIVE; Cocaine Screen,Urine PRESUMPTIVE NEGATIVE; Methadone Screen,Urine PRESUMPTIVE NEGATIVE; Opiate Screen,Urine PRESUMPTIVE NEGATIVE
[2019-01-16] MEDS ORDERED: ACETAMINOPHEN 325 MG TAB PO PRN (22:51)
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
[2019-01-17 08:20] VITALS: BP 90/54
== END 2019-01-17 13:15 | disposition home or self-care (01) ==
LOC: ED 19:21 → EEVIPCON 19:21 → ED 01-17 13:15
DX: F28 Other psychotic disorder not due to a substance or known physiological condition (principal); F31.9 Bipolar disorder, unspecified; F20.0 Paranoid schizophrenia; Z79.899 Other long term (current) drug therapy
CPT/HCPCS: 36415; 80048; 80164; 80307; 81001; 82550; 83735; 84702; 85027; 96372; 99284; J1630; J2060; 80320; G0480

== ENCOUNTER 2019-03-18 16:04 | Emergency (ER) | payer MEDICAID ==
--- NOTE | 2019-03-18 16:41 | Event Note ---
ED Screening Note Date of service: 03/18/19 (n) Time: 16:38 ED Screening Note: 29 y o f presents with hearing voices pmh: schizophrenia, bipolar Denies SI/HI This initial assessment/diagnostic orders/clinical plan/treatment(s) is/are subject to change based on patients health status, clinical progression and re- assessment by fellow clinical providers in the ED. Further treatment and workup at subsequent clinical providers discretion. Patient/guardian urged not to elope from the ED as their condition may be serious if not clinically assessed and managed. Initial orders include: med clear main ed
[2019-03-18 16:45] VITALS: BP 136/82
[2019-03-18 17:47] LABS: Basophils # (Auto) 0.1 K/mm3 (0.0-0.1); Eosinophils # (Auto) 0.2 K/mm3 (0.0-0.4); Eosinophils % (Auto) 2.4 % (0.0-4.3); Hematocrit 42.6 % (30.3-42.9); Hemoglobin 14.8 gm/dl (10.1-14.3); Lymphocytes # (Auto) 2.3 K/mm3 (1.2-5.4); Mean Corpuscular HGB Conc 35 % (30-34); Mean Corpuscular Volume 86 fl (79-97); Monocytes # (Auto) 0.6 K/mm3 (0.0-0.8); Monocytes % (Auto) 6.5 % (0.0-7.3); Platelet Count 322 K/mm3 (140-440); Red Blood Count 4.95 M/mm3 (3.65-5.03); Red Cell Distribution Width 14.3 % (13.2-15.2)
[2019-03-18 18:08] LABS: BUN/Creatinine Ratio 8; Blood Urea Nitrogen 5 mg/dL (7-17); Calcium 9.4 mg/dL (8.4-10.2); Hemolysis Index 8
== END 2019-03-18 17:58 | disposition left against medical advice (07) ==
LOC: ED 16:04
DX: F29 Unspecified psychosis not due to a substance or known physiological condition (principal); Z53.21 Procedure and treatment not carried out due to patient leaving prior to being seen by health care provider
CPT/HCPCS: 36415; 80048; 80320; 84703; 85025; G0480

== ENCOUNTER 2019-03-23 03:45 | Emergency (ER) | payer MEDICAID ==
[2019-03-23] MEDS ORDERED: ZIPRASIDONE MESYLATE 20 MG VIAL IM ONE (03:48)
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
[2019-03-23 04:31] LABS: Amphetamine Screen,Urine PRESUMPTIVE NEGATIVE; Benzodiazepines Screen,Urine PRESUMPTIVE NEGATIVE; Cannabinoid Screen,Urine PRESUMPTIVE NEGATIVE; Cocaine Screen,Urine PRESUMPTIVE NEGATIVE; Methadone Screen,Urine PRESUMPTIVE NEGATIVE; Opiate Screen,Urine PRESUMPTIVE NEGATIVE
[2019-03-23 04:37] LABS: Basophils # (Auto) 0.1 K/mm3 (0.0-0.1); Basophils % (Auto) 0.5 % (0.0-1.8); Eosinophils # (Auto) 0.1 K/mm3 (0.0-0.4); Eosinophils % (Auto) 0.6 % (0.0-4.3); Hematocrit 40.4 % (30.3-42.9); Hemoglobin 13.9 gm/dl (10.1-14.3); Lymphocytes # (Auto) 2.5 K/mm3 (1.2-5.4); Lymphocytes % (Auto) 18.6 % (13.4-35.0); Mean Corpuscular HGB Conc 35 % (30-34); Mean Corpuscular Volume 86 fl (79-97); Monocytes # (Auto) 0.5 K/mm3 (0.0-0.8); Platelet Count 310 K/mm3 (140-440); Red Blood Count 4.73 M/mm3 (3.65-5.03); Red Cell Distribution Width 13.7 % (13.2-15.2)
[2019-03-23 04:38] LABS: Bacteria,Urine 1+ /HPF (Negative); Bilirubin,Urine NEG (Negative); Blood,Urine MOD (Negative); Color,Urine Colorless (Yellow); Protein,Urine <15 mg/dL mg/dL (Negative); Urobilinogen,Urine < 2.0 mg/dL (<2.0)
[2019-03-23 04:56] LABS: Alanine Aminotransferase 41 units/L (7-56); Albumin 3.7 g/dL (3.9-5); BUN/Creatinine Ratio 11; Blood Urea Nitrogen 9 mg/dL (7-17); Hemolysis Index 5
[2019-03-23 08:16] VITALS: BP 109/75
[2019-03-23] MEDS ORDERED: SODIUM CHLORIDE 0.9% 1000 ML 1,000 ML IV ONE ×2 (15:13→17:39)
[2019-03-23 16:37] LABS: BUN/Creatinine Ratio 15; Blood Urea Nitrogen 9 mg/dL (7-17); Calcium 9.6 mg/dL (8.4-10.2); Hemolysis Index 10
== END 2019-03-23 18:52 | disposition home or self-care (01) ==
LOC: ED 03:45 → EEVIPCON 03:45 → ED 18:52
DX: F31.9 Bipolar disorder, unspecified (principal); E87.1 Hypo-osmolality and hyponatremia; Z98.890 Other specified postprocedural states; Z79.899 Other long term (current) drug therapy
CPT/HCPCS: 36415; 80048; 80053; 80178; 80307; 81001; 84703; 85025; 96372; 99284; J3486; J7030; 80320; G0480

== ENCOUNTER 2019-04-20 23:02 | Emergency (ER) | payer MEDICAID ==
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
[2019-04-21 00:08] LABS: Bilirubin,Urine NEG (Negative); Blood,Urine SM (Negative); Color,Urine Colorless (Yellow); Protein,Urine <15 mg/dL mg/dL (Negative); Urobilinogen,Urine < 2.0 mg/dL (<2.0)
[2019-04-21 00:10] LABS: Amphetamine Screen,Urine PRESUMPTIVE NEGATIVE; Benzodiazepines Screen,Urine PRESUMPTIVE NEGATIVE; Cannabinoid Screen,Urine PRESUMPTIVE NEGATIVE; Cocaine Screen,Urine PRESUMPTIVE NEGATIVE; Methadone Screen,Urine PRESUMPTIVE NEGATIVE; Opiate Screen,Urine PRESUMPTIVE NEGATIVE
[2019-04-21 00:12] LABS: HCG Qualitative,Urine Negative (Negative)
[2019-04-21] MEDS ORDERED: IBUPROFEN 800 MG TAB PO ONE (00:22)
[2019-04-21] MEDS ORDERED: IBUPROFEN 800 MG TAB ONE (00:22)
[2019-04-21 01:17] LABS: BUN/Creatinine Ratio 13; Blood Urea Nitrogen 9 mg/dL (7-17); Calcium 9.7 mg/dL (8.4-10.2); Hemolysis Index 5
[2019-04-21 01:23] LABS: Basophils # (Auto) 0.1 K/mm3 (0.0-0.1); Basophils % (Auto) 0.8 % (0.0-1.8); Eosinophils # (Auto) 0.1 K/mm3 (0.0-0.4); Eosinophils % (Auto) 1.3 % (0.0-4.3); Hematocrit 41.7 % (30.3-42.9); Hemoglobin 14.1 gm/dl (10.1-14.3); Lymphocytes # (Auto) 3.1 K/mm3 (1.2-5.4); Lymphocytes % (Auto) 27.7 % (13.4-35.0); Mean Corpuscular HGB Conc 34 % (30-34); Mean Corpuscular Volume 87 fl (79-97); Monocytes # (Auto) 0.7 K/mm3 (0.0-0.8); Monocytes % (Auto) 6.3 % (0.0-7.3); Platelet Count 354 K/mm3 (140-440); Red Blood Count 4.82 M/mm3 (3.65-5.03); Red Cell Distribution Width 14.2 % (13.2-15.2)
[2019-04-21] MEDS ORDERED: traZODone 50 MG TAB PO PRN (17:53)
[2019-04-21] MEDS ORDERED: NON-FORMULARY EACH (Olanzapine [Zyprexa] 15 MG) PO SCH (18:00)
[2019-04-21] MEDS: GABAPENTIN 400 MG CAP PO SCH (22:20)
[2019-04-21] MEDS: DIVALPROEX ER 500 MG TAB PO SCH (22:20)
[2019-04-22] MEDS: GABAPENTIN 400 MG CAP PO SCH (10:03)
[2019-04-22] MEDS: DIVALPROEX ER 500 MG TAB PO SCH (10:03)
[2019-04-22 10:10] VITALS: BP 113/65
== END 2019-04-22 11:15 ==
LOC: ED 23:02
DX: F29 Unspecified psychosis not due to a substance or known physiological condition (principal); F25.0 Schizoaffective disorder, bipolar type; Z98.890 Other specified postprocedural states; Z79.899 Other long term (current) drug therapy
CPT/HCPCS: 36415; 80048; 80307; 80320; 81001; 81025; 85025; G0480

== ENCOUNTER 2019-06-19 21:18 | Emergency (ER) | payer MEDICAID ==
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
[2019-06-19 21:46] LABS: Basophils # (Auto) 0.1 K/mm3 (0.0-0.1); Eosinophils # (Auto) 0.2 K/mm3 (0.0-0.4); Eosinophils % (Auto) 2.4 % (0.0-4.3); Hematocrit 44.4 % (30.3-42.9); Lymphocytes # (Auto) 1.9 K/mm3 (1.2-5.4); Lymphocytes % (Auto) 19.3 % (13.4-35.0); Mean Corpuscular HGB Conc 34 % (30-34); Mean Corpuscular Volume 88 fl (79-97); Monocytes # (Auto) 0.5 K/mm3 (0.0-0.8); Monocytes % (Auto) 4.8 % (0.0-7.3); Platelet Count 334 K/mm3 (140-440); Red Blood Count 5.07 M/mm3 (3.65-5.03); Red Cell Distribution Width 14.2 % (13.2-15.2)
[2019-06-19 22:05] LABS: BUN/Creatinine Ratio 9; Blood Urea Nitrogen 6 mg/dL (7-17); Calcium 9.3 mg/dL (8.4-10.2); Hemolysis Index 7
[2019-06-19 22:42] LABS: Bilirubin,Urine NEG (Negative); Blood,Urine NEG (Negative); Color,Urine Colorless (Yellow); Protein,Urine <15 mg/dL mg/dL (Negative); Urobilinogen,Urine < 2.0 mg/dL (<2.0)
[2019-06-19 22:48] LABS: Amphetamine Screen,Urine PRESUMPTIVE NEGATIVE; Benzodiazepines Screen,Urine PRESUMPTIVE NEGATIVE; Cannabinoid Screen,Urine PRESUMPTIVE NEGATIVE; Cocaine Screen,Urine PRESUMPTIVE NEGATIVE; Methadone Screen,Urine PRESUMPTIVE NEGATIVE; Opiate Screen,Urine PRESUMPTIVE NEGATIVE
[2019-06-20 16:23] VITALS: BP 126/79
== END 2019-06-20 16:23 ==
LOC: ED 21:18
DX: F20.89 Other schizophrenia (principal); F31.9 Bipolar disorder, unspecified; F17.210 Nicotine dependence, cigarettes, uncomplicated; Z79.899 Other long term (current) drug therapy
CPT/HCPCS: 36415; 80048; 80164; 80307; 80320; 81001; 84703; 85025; G0480

== ENCOUNTER 2019-06-29 18:31 | Emergency (ER) | payer MEDICAID ==
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
[2019-06-29 19:36] LABS: Basophils # (Auto) 0.1 K/mm3 (0.0-0.1); Basophils % (Auto) 0.8 % (0.0-1.8); Eosinophils # (Auto) 0.2 K/mm3 (0.0-0.4); Eosinophils % (Auto) 2.3 % (0.0-4.3); Hematocrit 37.9 % (30.3-42.9); Hemoglobin 13.3 gm/dl (10.1-14.3); Lymphocytes # (Auto) 2.3 K/mm3 (1.2-5.4); Mean Corpuscular HGB Conc 35 % (30-34); Mean Corpuscular Volume 85 fl (79-97); Monocytes # (Auto) 0.5 K/mm3 (0.0-0.8); Platelet Count 299 K/mm3 (140-440); Red Blood Count 4.47 M/mm3 (3.65-5.03); Red Cell Distribution Width 14.2 % (13.2-15.2)
[2019-06-29 19:56] LABS: BUN/Creatinine Ratio 17; Blood Urea Nitrogen 10 mg/dL (7-17); Calcium 8.7 mg/dL (8.4-10.2); Hemolysis Index 4
[2019-06-30 02:43] LABS: Bilirubin,Urine NEG (Negative); Blood,Urine NEG (Negative); Color,Urine Straw (Yellow); Mucus,Urine FEW /HPF; Protein,Urine <15 mg/dL mg/dL (Negative); Urobilinogen,Urine < 2.0 mg/dL (<2.0)
[2019-06-30 02:50] LABS: Amphetamine Screen,Urine PRESUMPTIVE NEGATIVE; Benzodiazepines Screen,Urine PRESUMPTIVE NEGATIVE; Cannabinoid Screen,Urine PRESUMPTIVE NEGATIVE; Cocaine Screen,Urine PRESUMPTIVE NEGATIVE; Methadone Screen,Urine PRESUMPTIVE NEGATIVE; Opiate Screen,Urine PRESUMPTIVE NEGATIVE
[2019-06-30 13:22] VITALS: BP 106/50
== END 2019-06-30 12:20 | disposition home or self-care (01) ==
LOC: ED 18:31
DX: F20.89 Other schizophrenia (principal); F31.9 Bipolar disorder, unspecified; F17.200 Nicotine dependence, unspecified, uncomplicated
CPT/HCPCS: 36415; 80048; 80307; 80320; 81001; 84703; 85025; G0480

== ENCOUNTER 2019-10-06 10:22 | Emergency (ER) | payer MEDICAID ==
[2019-10-06 11:04] VITALS: BP 113/62
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
[2019-10-06 12:07] LABS: Basophils # (Auto) 0.1 K/mm3 (0.0-0.1); Basophils % (Auto) 0.5 % (0.0-1.8); Eosinophils # (Auto) 0.3 K/mm3 (0.0-0.4); Eosinophils % (Auto) 3.4 % (0.0-4.3); Lymphocytes # (Auto) 1.9 K/mm3 (1.2-5.4); Lymphocytes % (Auto) 19.6 % (13.4-35.0); Mean Corpuscular HGB Conc 36 % (30-34); Mean Corpuscular Volume 85 fl (79-97); Monocytes # (Auto) 0.6 K/mm3 (0.0-0.8); Monocytes % (Auto) 6.6 % (0.0-7.3); Platelet Count 288 K/mm3 (140-440); Red Blood Count 4.38 M/mm3 (3.65-5.03); Red Cell Distribution Width 14.6 % (13.2-15.2)
[2019-10-06 12:12] LABS: Hematocrit 37.4 % (30.3-42.9); Hemoglobin 13.5 gm/dl (10.1-14.3)
[2019-10-06 12:38] LABS: Blood Urea Nitrogen 11 mg/dL (7-17); Calcium 9.3 mg/dL (8.4-10.2); Hemolysis Index 4
[2019-10-06 12:41] LABS: BUN/Creatinine Ratio 16
== END 2019-10-06 16:36 | disposition home or self-care (01) ==
LOC: ED 10:22
DX: F25.0 Schizoaffective disorder, bipolar type (principal); F17.200 Nicotine dependence, unspecified, uncomplicated; Z79.899 Other long term (current) drug therapy
CPT/HCPCS: 36415; 80048; 80320; 84703; 85025; 99283; G0480

== ENCOUNTER 2019-11-04 23:44 | Emergency (ER) | payer MEDICAID ==
[2019-11-05 00:14] VITALS: BP 132/61
--- NOTE | 2019-11-05 04:13 | Ultrasound Report ---
ULTRASOUND PELVIS INDICATION: fb. TECHNIQUE: Transabdominal and Transvaginal. Duplex Color Doppler used: Yes. COMPARISON: None available FINDINGS: Uterus: Present. Size: 7.3 x 3.6 x 3.2 cm. Endometrial complex: Normal measuring 6.5 mm. Mass lesions: None. Additional findings: No visualized foreign body within cervix or vagina Right Ovary -- Normal. Blood flow: Normal. Cyst or mass: None. Left Ovary--not visualized on transabdominal or transvaginal images Urinary Bladder: Normal. Free Fluid: None. Additional Findings: None. IMPRESSION: 1. No acute sonographic abnormality of the pelvis. No visualized foreign body 2. Left ovary not visualized Signer Name: Elvin López MD Signed: 11/05/2019 4:08 AM Workstation Name: [id number]
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
== END 2019-11-05 04:47 | disposition home or self-care (01) ==
LOC: ED 23:44
DX: N76.0 Acute vaginitis (principal); F31.9 Bipolar disorder, unspecified; F20.89 Other schizophrenia; F17.200 Nicotine dependence, unspecified, uncomplicated; Z98.890 Other specified postprocedural states
CPT/HCPCS: 76830; 76856

== ENCOUNTER 2019-11-09 04:36 | Emergency (ER) | payer MEDICAID ==
[2019-11-09 05:07] LABS: Basophils % (Auto) 0.4 % (0.0-1.8); Eosinophils # (Auto) 0.3 K/mm3 (0.0-0.4); Eosinophils % (Auto) 3.2 % (0.0-4.3); Hematocrit 42.3 % (30.3-42.9); Hemoglobin 14.7 gm/dl (10.1-14.3); Lymphocytes # (Auto) 3.3 K/mm3 (1.2-5.4); Lymphocytes % (Auto) 31.1 % (13.4-35.0); Mean Corpuscular HGB Conc 35 % (30-34); Mean Corpuscular Volume 88 fl (79-97); Monocytes # (Auto) 0.8 K/mm3 (0.0-0.8); Monocytes % (Auto) 7.5 % (0.0-7.3); Platelet Count 338 K/mm3 (140-440); Red Blood Count 4.83 M/mm3 (3.65-5.03); Red Cell Distribution Width 14.2 % (13.2-15.2)
[2019-11-09 05:24] LABS: Blood Urea Nitrogen 9 mg/dL (7-17); Calcium 9.1 mg/dL (8.4-10.2); Hemolysis Index 10
[2019-11-09 05:27] LABS: BUN/Creatinine Ratio 13
[2019-11-09 05:40] LABS: Bacteria,Urine 1+ /HPF (Negative); Bilirubin,Urine NEG (Negative); Blood,Urine NEG (Negative); Color,Urine Colorless (Yellow); Protein,Urine <15 mg/dL mg/dL (Negative); RBC,Urine < 1.0 /HPF (0.0-6.0); Urobilinogen,Urine < 2.0 mg/dL (<2.0); WBC,Urine < 1.0 /HPF (0.0-6.0)
[2019-11-09 05:44] LABS: Amphetamine Screen,Urine PRESUMPTIVE NEGATIVE; Benzodiazepines Screen,Urine PRESUMPTIVE NEGATIVE; Cannabinoid Screen,Urine PRESUMPTIVE NEGATIVE; Cocaine Screen,Urine PRESUMPTIVE NEGATIVE; Methadone Screen,Urine PRESUMPTIVE NEGATIVE; Opiate Screen,Urine PRESUMPTIVE NEGATIVE
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
[2019-11-09 07:50] VITALS: BP 131/85
== END 2019-11-09 10:31 | disposition home or self-care (01) ==
LOC: ED 04:36
DX: R44.0 Auditory hallucinations (principal); F17.200 Nicotine dependence, unspecified, uncomplicated; Z00.00 Encounter for general adult medical examination without abnormal findings; Z98.890 Other specified postprocedural states; Z79.899 Other long term (current) drug therapy
CPT/HCPCS: 36415; 80048; 80307; 80320; 81001; 82550; 83735; 84703; 85025; G0480

== ENCOUNTER 2020-02-01 22:17 | Emergency (ER) | payer MEDICAID ==
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
[2020-02-02 00:38] LABS: Basophils # (Auto) 0.1 K/mm3 (0.0-0.1); Basophils % (Auto) 0.4 % (0.0-1.8); Eosinophils # (Auto) 0.2 K/mm3 (0.0-0.4); Eosinophils % (Auto) 1.6 % (0.0-4.3); Hematocrit 44.1 % (30.3-42.9); Lymphocytes # (Auto) 2.4 K/mm3 (1.2-5.4); Lymphocytes % (Auto) 20.1 % (13.4-35.0); Mean Corpuscular HGB Conc 34 % (30-34); Mean Corpuscular Volume 88 fl (79-97); Monocytes # (Auto) 0.5 K/mm3 (0.0-0.8); Monocytes % (Auto) 4.2 % (0.0-7.3); Platelet Count 315 K/mm3 (140-440); Red Blood Count 5.05 M/mm3 (3.65-5.03); Red Cell Distribution Width 13.9 % (13.2-15.2)
[2020-02-02 00:40] LABS: Bacteria,Urine 1+ /HPF (Negative); Bilirubin,Urine NEG (Negative); Blood,Urine NEG (Negative); Color,Urine Straw (Yellow); Protein,Urine <15 mg/dL mg/dL (Negative); Urobilinogen,Urine < 2.0 mg/dL (<2.0)
[2020-02-02 00:47] LABS: Amphetamine Screen,Urine PRESUMPTIVE NEGATIVE; Benzodiazepines Screen,Urine PRESUMPTIVE NEGATIVE; Cannabinoid Screen,Urine PRESUMPTIVE NEGATIVE; Cocaine Screen,Urine PRESUMPTIVE NEGATIVE; Methadone Screen,Urine PRESUMPTIVE NEGATIVE; Opiate Screen,Urine PRESUMPTIVE NEGATIVE
[2020-02-02 00:52] LABS: Blood Urea Nitrogen 7 mg/dL (7-17); Calcium 9.2 mg/dL (8.4-10.2); Hemolysis Index 23
[2020-02-02 01:02] LABS: BUN/Creatinine Ratio 12
[2020-02-02 07:54] VITALS: BP 113/70
--- NOTE | 2020-02-02 09:31 | Consultation ---
History of Present Illness - Reason for Consult Consult date: 02/02/20 Reason for consult: hallucinations - History of Present Psychiatric Illness Guera Harris is a 29y/o female patient who states she presented to the ER because voices were telling her to cut her arm off. During my interview with the patient she is lying down asleep. The patient states "I'm doing okay, actually better" when asked how she was doing. She then says "am I going home or am I gone see somebody." She denies hallucinations of any kind at present, stating "that was yesterday. I'm not having those any more." The patient also denies any SI/HI. She says "they were telling me that yesterday but I wasn't going to act on it." She says she's been "sleeping good. I just been sleeping all morning." She says "when will you let me know if I can go home cause all I been doing is resting." She denies any illicit drug use and alcohol. She says she smokes cigarettes "two pack a day but I don't want no patch." The patient says she has a history of schizophrenia and bipolar. She says she "takes her medications everyday." PAST PSYCHIATRIC HISTORY Diagnoses: schizophrenia, bipolar Suicide attempts or Self-harm behavior: "maybe once" Prior psychiatric hospitalizations: a lot Substance Abuse history: nicotine Previous psychiatric medications tried: zyprexa, trazodone benadry, fluoxetine Outpatient treatment: yes PAST MEDICAL HISTORY: None reported Family Psychiatric History: None reported or documented SOCIAL HISTORY Marital Status: single Living Arrangements: with family Employment Status: unemployed Access to guns/weapons: None reported Education: 11th grade History of Abuse: None reported Legal History: denies REVIEW OF SYSTEMS Constitutional: Negative for weight loss ENT: Negative for stridor Respiratory: Negative for cough or hemoptysis All other systems reviewed and are negative MENTAL STATUS EXAMINATION General Appearance and Behavior: Age appropriate, good hygiene, wearing appropriate clothes, fair eye contact Cooperation: Participating/engaged Psychomotor Behavior: Psychomotor normal Mood: "okay, better" Affect and affective range: congruent with stated mood Thought Process: logical Thought Content: None Speech: Normal rate, volume and rhythm Suicidal Ideation: Denies Homicidal Ideation: Denies Hallucinations: Denies Delusions: None elicited Impulse Control: Limited Insight and Judgment: Limited insight and judgment Memory: Normal Attention: impaired Orientation: Alert, oriented Assessment and Plan (1) Bipolar Disorder Treatment Plan MEDICATIONS: Continue home medications previously prescribed Risks, benefits and alternatives of medications discussed with the patient, questions answered and consent obtained from patient. PSYCHOTHERAPY: Supportive psychotherapy provided MEDICAL: Per primary team DELIRIUM PRECAUTIONS: Please re-orient patient frequently, keep lights on during the day, and minimize benzodiazepines and opiates as these medications could worsen patient's confusion. REGISTERED DENTAL HYGIENIST: Defer to primary DISPOSITION: Do not recommend acute inpatient psychiatric hospitalization at this time. The patient understands that if suicidal thoughts or tendencies are to arise she is to seek immediate assistance including but not limited to the crisis hotline, 911/ER The patient to follow up with outpatient psych in 7 to 14 days upon discharge The sitter to further discuss safety plan Will sign off. Thank you for the consult. Please contact with any questions and/or concerns. Case staffed with Dr. Ivy Medications and Allergies Allergies Allergy/AdvReac Type Severity Reaction Status Date / Time No Known Allergies Allergy Verified 09/28/19 02:33 Home Medications Medication Instructions Recorded Confirmed Last Taken Type OLANZapine [Zyprexa] 15 mg PO QDAY #7 tablet 01/22/18 09/27/19 Unknown Rx OLANzapine [ZyPREXA] 5 mg PO HS #30 tablet 11/09/18 09/27/19 Unknown Rx traZODone [Desyrel] 50 mg PO HS PRN #30 tablet 11/09/18 09/27/19 Unknown Rx Gabapentin 400 mg PO BID 01/16/19 09/27/19 Unknown History Mental Status Exam - Vital signs Last Vital Signs Temp 97.6 F 02/02/20 07:52 Pulse 90 02/02/20 07:52 Resp 20 02/02/20 07:52 BP 113/70 02/02/20 07:52 Pulse Ox 96 02/02/20 07:52 Results Result Diagrams: 02/02/20 00:04 02/02/20 00:04 Abnormal lab results 02/02/20 02/02/20 02/02/20 Range/Units 00:04 00:04 00:04 WBC (4.5-11.0) K/mm3 RBC (3.65-5.03) M/mm3 Hgb (10.1-14.3) gm/dl Hct (30.3-42.9) % Seg Neutrophils % (40.0-70.0) % Seg Neutrophils # (1.8-7.7) K/mm3 Sodium 129 L (137-145) mmol/L Potassium 3.5 L (3.6-5.0) mmol/L Chloride 96.4 L (98-107) mmol/L Carbon Dioxide 19 L (22-30) mmol/L Glucose 213 H (65-100) mg/dL Ur Specific [place] (1.003-1.030) Salicylates < 0.3 L (2.8-20.0) mg/dL Acetaminophen 5.0 L (10.0-30.0) ug/mL 02/02/20 02/02/20 Range/Units 00:04 Unknown WBC 12.0 H (4.5-11.0) K/mm3 RBC 5.05 H (3.65-5.03) M/mm3 Hgb 15.0 H (10.1-14.3) gm/dl Hct 44.1 H (30.3-42.9) % Seg Neutrophils % 73.7 H (40.0-70.0) % Seg Neutrophils # 8.8 H (1.8-7.7) K/mm3 Sodium (137-145) mmol/L Potassium (3.6-5.0) mmol/L Chloride (98-107) mmol/L Carbon Dioxide (22-30) mmol/L Glucose (65-100) mg/dL Ur Specific [place] 1.001 L (1.003-1.030) Salicylates (2.8-20.0) mg/dL Acetaminophen (10.0-30.0) ug/mL All other labs normal.
== END 2020-02-02 13:00 | disposition home or self-care (01) ==
LOC: ED 22:17
DX: F31.9 Bipolar disorder, unspecified (principal)
CPT/HCPCS: 36415; 80048; 80307; 80320; 81001; 84703; 85025; G0480

== ENCOUNTER 2020-02-07 15:58 | Emergency (ER) | payer MEDICAID ==
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
[2020-02-07 17:22] LABS: Bilirubin,Urine NEG (Negative); Blood,Urine NEG (Negative); Color,Urine Colorless (Yellow); Protein,Urine <15 mg/dL mg/dL (Negative); RBC,Urine < 1.0 /HPF (0.0-6.0); Urobilinogen,Urine < 2.0 mg/dL (<2.0)
[2020-02-07 17:30] LABS: Amphetamine Screen,Urine Negative; Benzodiazepines Screen,Urine Negative; Cannabinoid Screen,Urine Negative; Cocaine Screen,Urine Negative; Methadone Screen,Urine Negative; Opiate Screen,Urine Negative
[2020-02-07 17:42] LABS: Basophils # (Auto) 0.1 K/mm3 (0.0-0.1); Basophils % (Auto) 1.2 % (0.0-1.8); Eosinophils # (Auto) 0.2 K/mm3 (0.0-0.4); Eosinophils % (Auto) 2.2 % (0.0-4.3); Hematocrit 44.1 % (30.3-42.9); Hemoglobin 15.2 gm/dl (10.1-14.3); Lymphocytes % (Auto) 26.6 % (13.4-35.0); Mean Corpuscular HGB Conc 35 % (30-34); Mean Corpuscular Volume 88 fl (79-97); Monocytes # (Auto) 0.6 K/mm3 (0.0-0.8); Monocytes % (Auto) 5.5 % (0.0-7.3); Platelet Count 324 K/mm3 (140-440); Red Blood Count 5.03 M/mm3 (3.65-5.03); Red Cell Distribution Width 13.7 % (13.2-15.2)
[2020-02-07 17:54] LABS: Blood Urea Nitrogen 7 mg/dL (7-17); Calcium 9.5 mg/dL (8.4-10.2); Hemolysis Index 15
[2020-02-07 17:56] LABS: BUN/Creatinine Ratio 12
--- NOTE | 2020-02-08 09:11 | Consultation ---
History of Present Illness - Reason for Consult Consult date: 02/08/20 Reason for consult: MHE Requesting physician: MAREK DONAHUE - History of Present Psychiatric Illness Per ED Provider: 29-year-old female, history of bipolar disorder, presents to ED reporting auditory hallucinations. Patient states Aimee is telling her to kill her brother. However, patient states she does not have a gun to kill him with. Patient states she will stab him if need be. Patient states the voices are telling her that her brother is the devil, so it will not be wrong if she killed him. Patient reports she has been compliant with her psychiatric medications. She denies any drugs or alcohol use. Psych HPI Patient is a 29-year-old, unemployed, single female with prior psych iatric history of schizophrenia and bipolar and no significant medical history who presented to the ED by EMS with chief complaint of homicidal ideation towards her brother who is much older. Patient reports she was at home yesterday ingested having these thoughts, states that she was having to stop because she thinks her brother was illuminati and brother currently resides with them, which is when she decided to call EMS so that she can be brought to the ED for mental evaluation. Patient denies having any other symptoms at this moment, reports she takes medication at home and has been compliant with her medication. Patient denies SI, and also denies any auditory or visual hallucination at this moment. PAST PSYCHIATRIC HISTORY Diagnoses: schizophrenia, bipolar Suicide attempts or Self-harm behavior: "maybe once" Prior psychiatric hospitalizations: a lot Substance Abuse history: nicotine Previous psychiatric medications tried: zyprexa, trazodone benadry, fluoxetine Outpatient treatment: yes PAST MEDICAL HISTORY: None reported Family Psychiatric History: None reported or documented SOCIAL HISTORY Marital Status: single Living Arrangements: with family Employment Status: unemployed Access to guns/weapons: None reported Education: 11th grade History of Abuse: None reported Legal History: denies REVIEW OF SYSTEMS Constitutional: Negative for weight loss ENT: Negative for stridor Respiratory: Negative for cough or hemoptysis All other systems reviewed and are negative MENTAL STATUS EXAMINATION General Appearance and Behavior: Age appropriate, good hygiene, wearing appropriate clothes, fair eye contact Cooperation: Participating/engaged Psychomotor Behavior: Psychomotor normal Mood: "okay, better" Affect and affective range: congruent with stated mood Thought Process: logical Thought Content: None Speech: Normal rate, volume and rhythm Suicidal Ideation: Denies Homicidal Ideation: Denies Hallucinations: Denies Delusions: None elicited Impulse Control: Limited Insight and Judgment: Limited insight and judgment Memory: Normal Attention: impaired Orientation: Alert, oriented Treatment Plan Assessment and Plan - Psychiatric problem (1) Bipolar 2 disorder Current Visit: Yes Status: Acute MEDICATIONS: Risks, benefits and alternatives of medications discussed with the patient, questions answered and consent obtained from patient. PSYCHOTHERAPY: Supportive psychotherapy provided MEDICAL: Per primary team DELIRIUM PRECAUTIONS: Please re-orient patient frequently, keep lights on during the day, and minimize benzodiazepines and opiates as these medications could worsen patient's confusion. FABRIC SOURCER: DISPOSITION: Do Not Recommend acute inpatient psychiatric hospitalization at this time. Case discussed with Dr. Ivy and agrees with dispostion. LEGAL STATUS: 1013 rescinded FOLLOW-UP: Will sign off Thank you for the consult. Please contact with any questions and/or concerns. Medications and Allergies Allergies Allergy/AdvReac Type Severity Reaction Status Date / Time No Known Allergies Allergy Verified 02/07/20 16:13 Home Medications Medication Instructions Recorded Confirmed Last Taken Type OLANZapine [Zyprexa] 15 mg PO QDAY #7 tablet 01/22/18 02/07/20 1 Day Ago Rx ~02/06/20 RX: OLANzapine [ZyPREXA] 5 mg PO HS #30 tablet 11/09/18 02/07/20 1 Day Ago Rx ~02/06/20 RX: traZODone [Desyrel] 50 mg PO HS PRN #30 tablet 11/09/18 02/07/20 1 Day Ago Rx ~02/06/20 Gabapentin 400 mg PO BID 01/16/19 02/07/20 1 Day Ago History ~02/06/20 Mental Status Exam - Vital signs Last Vital Signs Temp 97.9 F 02/08/20 02:11 Pulse 78 02/08/20 02:11 Resp 18 02/08/20 02:11 BP 110/59 02/08/20 02:11 Pulse Ox 99 02/08/20 02:11 Results Result Diagrams: 02/07/20 16:30 02/07/20 16:30 Abnormal lab results 02/07/20 02/07/20 02/07/20 Range/Units 16:30 16:30 16:30 WBC (4.5-11.0) K/mm3 Hgb (10.1-14.3) gm/dl Hct (30.3-42.9) % MCHC (30-34) % Sodium 133 L (137-145) mmol/L Chloride 96.6 L (98-107) mmol/L Ur Specific [place] (1.003-1.030) Salicylates < 0.3 L (2.8-20.0) mg/dL Acetaminophen 5.0 L (10.0-30.0) ug/mL 02/07/20 02/07/20 Range/Units 16:30 16:45 WBC 11.1 H (4.5-11.0) K/mm3 Hgb 15.2 H (10.1-14.3) gm/dl Hct 44.1 H (30.3-42.9) % MCHC 35 H (30-34) % Sodium (137-145) mmol/L Chloride (98-107) mmol/L Ur Specific [place] 1.000 L (1.003-1.030) Salicylates (2.8-20.0) mg/dL Acetaminophen (10.0-30.0) ug/mL All other labs normal. Assessment and Plan - Psychiatric problem (1) Bipolar 2 disorder Current Visit: Yes Status: Acute
[2020-02-08 09:41] VITALS: BP 116/72
== END 2020-02-08 14:54 | disposition home or self-care (01) ==
LOC: ED 15:58
DX: F22 Delusional disorders (principal); Z20.828 Contact with and (suspected) exposure to other viral communicable diseases; F31.9 Bipolar disorder, unspecified; Z98.890 Other specified postprocedural states; Z79.899 Other long term (current) drug therapy
CPT/HCPCS: 36415; 80048; 80307; 81001; 85025; 99284; U0003; 80320; G0480

== ENCOUNTER 2020-04-14 16:38 | Emergency (ER) | payer MEDICAID ==
--- NOTE | 2020-04-14 17:46 | Event Note ---
ED Screening Note ED Screening Note: 30-year-old female family history schizophrenia and depression presents emerged department complaining of severe depression and being suicidal with a myriad of plans and also having a want to kill her brother. She reports some occasional auditory hallucinations as well. Reports no chest pain, no palpitation no headache, no blurred vision. This initial assessment/diagnostic orders/clinical plan/treatment(s) is/are subject to change based on patients health status, clinical progression and re-assessment by fellow clinical providers in the ED. Further treatment and workup at subsequent clinical providers discretion. Patient/guardian urged not to elope from the ED as their condition may be serious if not clinically assessed and managed. Initial orders include: Suicidal and homicidal ED hold orders and psych clearance orders
--- NOTE | 2020-04-14 18:12 | XRay Report ---
CHEST 1 VIEW 04/14/2020 6:01 PM INDICATION / CLINICAL INFORMATION: Medical Clearance Psych. COMPARISON: None available. FINDINGS: SUPPORT DEVICES: None. HEART / MEDIASTINUM: No significant abnormality. LUNGS / PLEURA: No significant pulmonary or pleural abnormality. No pneumothorax. ADDITIONAL FINDINGS: No significant additional findings. IMPRESSION: 1. No acute findings. Signer Name: Perez Gibbs MD Signed: 04/14/2020 6:08 PM Workstation Name: [id number]
[2020-04-14 18:21] LABS: Basophils # (Auto) 0.1 K/mm3 (0.0-0.1); Basophils % (Auto) 0.6 % (0.0-1.8); Eosinophils % (Auto) 0.2 % (0.0-4.3); Hematocrit 40.3 % (30.3-42.9); Hemoglobin 13.7 gm/dl (10.1-14.3); Lymphocytes # (Auto) 1.2 K/mm3 (1.2-5.4); Lymphocytes % (Auto) 9.9 % (13.4-35.0); Mean Corpuscular HGB Conc 34 % (30-34); Mean Corpuscular Volume 88 fl (79-97); Monocytes # (Auto) 0.4 K/mm3 (0.0-0.8); Monocytes % (Auto) 3.8 % (0.0-7.3); Platelet Count 297 K/mm3 (140-440); Red Blood Count 4.58 M/mm3 (3.65-5.03); Red Cell Distribution Width 14.2 % (13.2-15.2)
[2020-04-14 18:37] LABS: Alanine Aminotransferase 23 units/L (7-56); Blood Urea Nitrogen 6 mg/dL (7-17); Calcium 8.7 mg/dL (8.4-10.2); Hemolysis Index 7
[2020-04-14 18:38] LABS: BUN/Creatinine Ratio 9
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
[2020-04-14 20:32] LABS: Bilirubin,Urine NEG (Negative); Blood,Urine NEG (Negative); Color,Urine Colorless (Yellow); Protein,Urine <15 mg/dL mg/dL (Negative); Urobilinogen,Urine < 2.0 mg/dL (<2.0)
[2020-04-14 20:42] LABS: Amphetamine Screen,Urine Negative; Benzodiazepines Screen,Urine Negative; Cannabinoid Screen,Urine Negative; Cocaine Screen,Urine Negative; Methadone Screen,Urine Negative; Opiate Screen,Urine Negative
[2020-04-14 20:51] LABS: Bacteria,Urine 1+ /HPF (Negative); WBC,Urine < 1.0 /HPF (0.0-6.0)
[2020-04-14 20:53] LABS: RBC,Urine < 1.0 /HPF (0.0-6.0)
--- NOTE | 2020-04-15 10:47 | Consultation ---
History of Present Illness - Reason for Consult Consult date: 04/15/20 Reason for consult: SI - History of Present Psychiatric Illness During my interview with 30 year oldl Guera Harris, she is lying in bed asleep. The patient arouses but drifts back off. She tells me "I'm tired. I need some rest." She says "okay, just sleepy" when asked how she was feeling. The pat juve says she came to the hospital because "my brother kept antagonizing me." She says "but I just needed to rest. Just let me get some sleep." The patient denies SI/HI. When asked about hallucinations, the patient states "when I came in, but not now." PAST PSYCHIATRIC HISTORY Diagnoses: schizophrenia, bipolar Suicide attempts or Self-harm behavior:Yes Prior psychiatric hospitalizations: a lot Substance Abuse history: nicotine Previous psychiatric medications tried: zyprexa, trazodone benadry, fluoxetine Outpatient treatment: yes PAST MEDICAL HISTORY: None reported Family Psychiatric History: None reported or documented SOCIAL HISTORY Marital Status: single Living Arrangements: with brother Employment Status: Disabled Access to guns/weapons: None reported Education: 11th grade History of Abuse: None reported Legal History: denies REVIEW OF SYSTEMS Constitutional: Negative for weight loss ENT: Negative for stridor Respiratory: Negative for cough or hemoptysis All other systems reviewed and are negative MENTAL STATUS EXAMINATION General Appearance and Behavior: Age appropriate, good hygiene, wearing appropriate clothes, fair eye contact Cooperation: Participating/engaged Psychomotor Behavior: Psychomotor normal Mood: "okay, sleepy" Affect and affective range: congruent with stated mood Thought Process: logical Thought Content: None Speech: Normal rate, volume and rhythm Suicidal Ideation: Denies Homicidal Ideation: Denies Hallucinations: Denies Delusions: None elicited Impulse Control: Limited Insight and Judgment: Limited insight and judgment Memory: Normal Attention: impaired Orientation: Alert, oriented Assessment and Plan (1) Bipolar 2 disorder TREATMENT D/C 1013 Continue previously prescribed medications Risks, benefits and alternatives of medications discussed with the patient, questions answered and consent obtained from patient. PSYCHOTHERAPY: Supportive psychotherapy provided MEDICAL: Per primary team DELIRIUM PRECAUTIONS: Please re-orient patient frequently, keep lights on during the day, and minimize benzodiazepines and opiates as these medications could worsen patient's confusion. CONSTRUCTION DIRECTOR: DISPOSITION: Do Not Recommend acute inpatient psychiatric hospitalization at this time. Case discussed with Dr. Ivy and agrees with dispostion. FOLLOW-UP: Will sign off Thank you for the consult. Please contact with any questions and/or concerns. Medications and Allergies Allergies Allergy/AdvReac Type Severity Reaction Status Date / Time No Known Allergies Allergy Verified 02/07/20 16:13 Home Medications Medication Instructions Recorded Confirmed Last Taken Type FLUoxetine [PROzac] 10 mg PO DAILY 04/15/20 04/15/20 Unknown History Fesoterodine Fumarate ER (Nf) 1 tab PO DAILY 04/15/20 04/15/20 Unknown History [Toviaz ER (Nf)] OLANZapine [Zyprexa] 15 mg PO DAILY 04/15/20 04/15/20 Unknown History Paliperidone Palmitate [Invega 1 syr IM QMONTH 04/15/20 04/15/20 Unknown History [place]] traZODone [Desyrel] 100 mg PO HS PRN 04/15/20 04/15/20 Unknown History Mental Status Exam - Vital signs Last Vital Signs Temp 97.9 F 04/15/20 08:41 Pulse 93 H 04/15/20 08:41 Resp 18 04/15/20 09:47 BP 110/53 04/15/20 08:41 Pulse Ox 96 04/15/20 09:47 Results Result Diagrams: 04/14/20 18:04 04/14/20 18:04 Abnormal lab results 04/14/20 04/14/20 04/14/20 Range/Units 18:04 18:04 18:04 WBC 11.7 H (4.5-11.0) K/mm3 Lymph % (Auto) 9.9 L (13.4-35.0) % Seg Neutrophils % 85.5 H (40.0-70.0) % Seg Neutrophils # 10.0 H (1.8-7.7) K/mm3 Sodium (137-145) mmol/L Chloride (98-107) mmol/L BUN (7-17) mg/dL Ur Specific [place] (1.003-1.030) Salicylates < 0.3 L (2.8-20.0) mg/dL Acetaminophen 5.0 L (10.0-30.0) ug/mL 04/14/20 04/14/20 Range/Units 18:04 Unknown WBC (4.5-11.0) K/mm3 Lymph % (Auto) (13.4-35.0) % Seg Neutrophils % (40.0-70.0) % Seg Neutrophils # (1.8-7.7) K/mm3 Sodium 130 L (137-145) mmol/L Chloride 94.8 L (98-107) mmol/L BUN 6 L (7-17) mg/dL Ur Specific [place] 1.001 L (1.003-1.030) Salicylates (2.8-20.0) mg/dL Acetaminophen (10.0-30.0) ug/mL All other labs normal.
[2020-04-15 14:58] VITALS: BP 110/60
== END 2020-04-15 16:28 ==
LOC: ED 16:38
DX: R45.851 Suicidal ideations (principal); Z20.822 Contact with and (suspected) exposure to COVID-19; R45.850 Homicidal ideations; R44.0 Auditory hallucinations; F31.9 Bipolar disorder, unspecified; F17.200 Nicotine dependence, unspecified, uncomplicated; Z98.890 Other specified postprocedural states; Z79.899 Other long term (current) drug therapy
CPT/HCPCS: 36415; 71045; 80053; 80307; 81001; 84703; 85025; 99285; U0003; 80320; G0480

== ENCOUNTER 2020-06-16 17:48 | Emergency (ER) | payer MEDICAID ==
[2020-06-16 20:22] VITALS: BP 107/59
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
== END 2020-06-16 22:28 | disposition left against medical advice (07) ==
LOC: ED 17:48
DX: Z53.21 Procedure and treatment not carried out due to patient leaving prior to being seen by health care provider (principal)

== ENCOUNTER 2020-06-21 01:22 | Emergency (ER) | payer MEDICAID ==
[2020-06-21 02:02] LABS: Basophils # (Auto) 0.1 K/mm3 (0.0-0.1); Basophils % (Auto) 0.9 % (0.0-1.8); Eosinophils # (Auto) 0.3 K/mm3 (0.0-0.4); Hematocrit 43.3 % (30.3-42.9); Hemoglobin 14.4 gm/dl (10.1-14.3); Lymphocytes # (Auto) 3.4 K/mm3 (1.2-5.4); Lymphocytes % (Auto) 25.9 % (13.4-35.0); Mean Corpuscular HGB Conc 33 % (30-34); Mean Corpuscular Volume 86 fl (79-97); Monocytes # (Auto) 0.6 K/mm3 (0.0-0.8); Monocytes % (Auto) 4.4 % (0.0-7.3); Platelet Count 315 K/mm3 (140-440); Red Blood Count 5.02 M/mm3 (3.65-5.03); Red Cell Distribution Width 14.4 % (13.2-15.2)
[2020-06-21 02:17] LABS: Blood Urea Nitrogen 7 mg/dL (7-17); Calcium 8.6 mg/dL (8.4-10.2); Hemolysis Index 10
[2020-06-21 02:20] LABS: BUN/Creatinine Ratio 10
[2020-06-21 05:27] LABS: Bilirubin,Urine NEG (Negative); Blood,Urine NEG (Negative); Color,Urine Straw (Yellow); Protein,Urine <15 mg/dL mg/dL (Negative); RBC,Urine < 1.0 /HPF (0.0-6.0); Urobilinogen,Urine < 2.0 mg/dL (<2.0); WBC,Urine < 1.0 /HPF (0.0-6.0)
[2020-06-21 05:32] LABS: HCG Qualitative,Urine Negative (Negative)
[2020-06-21 05:57] LABS: Amphetamine Screen,Urine PRESUMPTIVE NEGATIVE; Benzodiazepines Screen,Urine PRESUMPTIVE NEGATIVE; Cannabinoid Screen,Urine PRESUMPTIVE NEGATIVE; Cocaine Screen,Urine PRESUMPTIVE NEGATIVE; Methadone Screen,Urine PRESUMPTIVE NEGATIVE; Opiate Screen,Urine PRESUMPTIVE NEGATIVE
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
[2020-06-21 08:37] VITALS: BP 100/45
--- NOTE | 2020-06-21 09:43 | Consultation ---
History of Present Illness - Reason for Consult Consult date: 06/21/20 Reason for consult: hallucinating - History of Present Psychiatric Illness Per ED Note: Chief complaint: "I am hearing voices telling me that they will be a zombie apocalypse." HPI: This is a 30-year-old female with history of schizophrenia bipolar disorder who presents with auditory hallucinations. She is hearing voices. She denies suicidal homicidal ideation. She has been taking her psychiatric medications. She arrived via EMS. She denies any physical complaints. The patient was seen today. She is lying down asleep. She easily arouses. She is pleasant, calm and cooperative. She is talkative. The patient says she was brought to the ER because she was "hearing voices about zombies and the apocalypse." When asking the patient did she ever hear the voices saying anything negative like harm herself or anyone else, she replied "no, they weren't telling me anything like that, just about zombies and stuff." When asking did she hear them now, the patient states "no, not really." The patient denies SI/HI. She states "is it not time for me to go home yet?" She says that she had skipped some days of taking her medications. PAST PSYCHIATRIC HISTORY Diagnoses: schizophrenia, bipolar Suicide attempts or Self-harm behavior:Yes Prior psychiatric hospitalizations: a lot Substance Abuse history: nicotine Previous psychiatric medications tried: zyprexa, trazodone benadry, fluoxetine Outpatient treatment: yes PAST MEDICAL HISTORY: None reported Family Psychiatric History: None reported or documented SOCIAL HISTORY Marital Status: single Living Arrangements: with brother Employment Status: Disabled Access to guns/weapons: None reported Education: 11th grade History of Abuse: None reported Legal History: denies REVIEW OF SYSTEMS Constitutional: Negative for weight loss ENT: Negative for stridor Respiratory: Negative for cough or hemoptysis All other systems reviewed and are negative MENTAL STATUS EXAMINATION General Appearance and Behavior: Age appropriate, good hygiene, wearing ap propriate clothes, good eye contact, pleasant, calm and cooperative Cooperation: Participating/engaged Psychomotor Behavior: Psychomotor normal Mood: "okay." Affect and affective range: congruent with stated mood Thought Process: logical Thought Content: None Speech: Normal rate, volume and rhythm Suicidal Ideation: Denies Homicidal Ideation: Denies Hallucinations: Denies Delusions: None elicited Impulse Control: Limited Insight and Judgment: Limited insight and judgment Memory: Normal Attention: impaired Orientation: Alert, oriented Assessment and Plan (1) Bipolar 2 disorder TREATMENT Continue previously prescribed medications Risks, benefits and alternatives of medications discussed with the patient, questions answered and consent obtained from patient. PSYCHOTHERAPY: Supportive psychotherapy provided MEDICAL: Per primary team DELIRIUM PRECAUTIONS: Please re-orient patient frequently, keep lights on during the day, and minimize benzodiazepines and opiates as these medications could worsen patient's confusion. 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 Case discussed with Dr. Ivy and agrees with dispostion. FOLLOW-UP: Will sign off Thank you for the consult. Please contact with any questions and/or concerns. Medications and Allergies Allergies Allergy/AdvReac Type Severity Reaction Status Date / Time No Known Allergies Allergy Verified 02/07/20 16:13 Home Medications Medication Instructions Recorded Confirmed Last Taken Type FLUoxetine [PROzac] 10 mg PO DAILY 04/15/20 04/15/20 Unknown History Fesoterodine Fumarate ER (Nf) 1 tab PO DAILY 04/15/20 04/15/20 Unknown History [Toviaz ER (Nf)] OLANZapine [Zyprexa] 15 mg PO DAILY 04/15/20 04/15/20 Unknown History Paliperidone Palmitate [Invega 1 syr IM QMONTH 04/15/20 04/15/20 Unknown History Sustenna] traZODone [Desyrel] 100 mg PO HS PRN 04/15/20 04/15/20 Unknown History Mental Status Exam - Vital signs Last Vital Signs Temp 98.0 F 06/21/20 08:36 Pulse 86 06/21/20 08:36 Resp 20 06/21/20 08:36 BP 100/45 06/21/20 08:36 Pulse Ox 96 06/21/20 08:36 Results Result Diagrams: 06/21/20 01:43 06/21/20 01:43 Abnormal lab results 06/21/20 06/21/20 06/21/20 Range/Units 01:43 01:43 01:43 WBC (4.5-11.0) K/mm3 Hgb (10.1-14.3) gm/dl Hct (30.3-42.9) % Seg Neutrophils # (1.8-7.7) K/mm3 Sodium 133 L (137-145) mmol/L Potassium 3.5 L (3.6-5.0) mmol/L Chloride 97.8 L (98-107) mmol/L Glucose 119 H (65-100) mg/dL Ur Specific [place] (1.003-1.030) Salicylates < 0.3 L (2.8-20.0) mg/dL Acetaminophen 5.0 L (10.0-30.0) ug/mL 06/21/20 06/21/20 Range/Units 01:43 05:00 WBC 13.1 H (4.5-11.0) K/mm3 Hgb 14.4 H (10.1-14.3) gm/dl Hct 43.3 H (30.3-42.9) % Seg Neutrophils # 8.7 H (1.8-7.7) K/mm3 Sodium (137-145) mmol/L Potassium (3.6-5.0) mmol/L Chloride (98-107) mmol/L Glucose (65-100) mg/dL Ur Specific [place] 1.001 L (1.003-1.030) Salicylates (2.8-20.0) mg/dL Acetaminophen (10.0-30.0) ug/mL All other labs normal.
== END 2020-06-21 11:08 | disposition home or self-care (01) ==
LOC: ED 01:22
DX: F31.9 Bipolar disorder, unspecified (principal); Z20.822 Contact with and (suspected) exposure to COVID-19; F20.9 Schizophrenia, unspecified; F17.200 Nicotine dependence, unspecified, uncomplicated; Z98.890 Other specified postprocedural states; Z79.899 Other long term (current) drug therapy
CPT/HCPCS: 36415; 80048; 80307; 81001; 81025; 85025; 99284; U0003; 80320; G0480

== ENCOUNTER 2020-07-01 07:51 | Emergency (ER) | payer MEDICAID ==
[2020-07-01 08:12] VITALS: BP 154/59
--- NOTE | 2020-07-01 10:50 | Emergency Department Report ---
Chief Complaint: Medical Clearance Stated Complaint: MEDICATION REFILL Time Seen by Provider: 07/01/20 09:10 - HPI History of Present Illness: This is a 30-year-old female with a history of bipolar disorder who states that she is run out of medication and presents for medication refill until she her appointment with her psychiatrist. Patient states that she has an appointment with a psychiatrist next week but she feels like she might have a episode so she needs a refill medication. She denies any complaints, fever, chills, nausea vomiting diarrhea. - ROS Review of Systems: As noted in HPI all systems reviewed and negative - Exam Vital Signs: Vital Signs 07/01/20 08:10 Temperature 98.0 F Pulse Rate 99 H Respiratory 20 Rate Blood Pressure 154/59 O2 Sat by Pulse 98 Oximetry Physical Exam: GENERAL: Alert and oriented x3, no apparent distress, wheelchair-bound, left leg amputated., atraumatic. HEAD: Head is normocephalic and a-traumatic. PSYCHIATRIC: Mood is congruent with affect, denies suicidal or homicidal ideations. SKIN: Warm and dry, No lesions, No ulceration or induration present. MSE screening note: Focused history and physical exam performed. Due to findings the following was ordered: ED Medical Decision Making - Medical Decision Making Patient in no acute distress presents for medication refill. Medication refilled for 10 days. Discussed follow-up with her psychiatrist. Patient understand instructions and will follow up. Medicaid transportation Services called patient waiting for transportation. ED Disposition for MSE Clinical Impression: Medication refill Disposition: DC-01 TO HOME OR SELFCARE Is pt being admited?: No Does the pt Need Aspirin: No Condition: Stable Prescriptions: FLUoxetine [PROzac] 10 mg PO DAILY 10 Days #10 OLANZapine [Zyprexa] 15 mg PO DAILY 10 Days #10 Referrals: LANDRY GILL MD [Primary Care Provider] - 3-5 Days Forms: Work/School Release Form(ED) Time of Disposition: 10:54
== END 2020-07-01 11:15 | disposition home or self-care (01) ==
LOC: ED 07:51
DX: F31.9 Bipolar disorder, unspecified (principal); Z76.0 Encounter for issue of repeat prescription
CPT/HCPCS: 99281

== ENCOUNTER 2020-07-05 10:54 | Emergency (ER) | payer MEDICAID ==
[2020-07-05 11:24] VITALS: BP 135/67
--- NOTE | 2020-07-05 11:28 | Event Note ---
ED Screening Note Date of service: 07/05/20 Time: 11:24 ED Screening Note: This initial assessment/diagnostic orders/clinical plan/treatment(s) is/are subject to change based on patients health status, clinical progression and re- assessment by fellow clinical providers in the ED. Further treatment and workup at subsequent clinical providers discretion. Patient/guardian urged not to elope from the ED as their condition may be serious if not clinically assessed and managed. Initial orders include: 30-year-old female with past medical history of bipolar disorder schizophrenic and depression . She presents complaining of hearing voices telling her that [place] is a bad place. She has a left AKA and wheelchair-bound
[2020-07-05 12:34] LABS: Hematocrit 39.6 % (30.3-42.9); Hemoglobin 13.7 gm/dl (10.1-14.3); Mean Corpuscular HGB Conc 35 % (30-34); Mean Corpuscular Volume 86 fl (79-97); Platelet Count 303 K/mm3 (140-440); Red Blood Count 4.58 M/mm3 (3.65-5.03); Red Cell Distribution Width 14.3 % (13.2-15.2)
[2020-07-05 12:45] LABS: Blood Urea Nitrogen 6 mg/dL (7-17); Calcium 8.7 mg/dL (8.4-10.2); Hemolysis Index 19
[2020-07-05 12:48] LABS: BUN/Creatinine Ratio 9
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
== END 2020-07-05 16:28 | disposition home or self-care (01) ==
LOC: ED 10:54
DX: G47.00 Insomnia, unspecified (principal); F31.9 Bipolar disorder, unspecified; F20.9 Schizophrenia, unspecified; F17.200 Nicotine dependence, unspecified, uncomplicated; Z98.890 Other specified postprocedural states; Z79.899 Other long term (current) drug therapy
CPT/HCPCS: 36415; 80048; 85027

== ENCOUNTER 2020-07-13 23:13 | Emergency (ER) | payer MEDICAID ==
--- NOTE | 2020-07-14 01:27 | XRay Report ---
CLINICAL DATA: Fell out of wheelchair TECHNICAL DATA: AP and lateral views lumbar spine. FINDINGS: The bone mineralization is normal. Vertebral body heights are normal. Intervertebral disc spaces are well maintained. Pedicles and spinous processes are normal in alignment. SI joints and sacrum are nor mal. IMPRESSION: Normal examination lumbar spine. Signer Name: Nirmal Calix MD Signed: 07/14/2020 1:23 AM Workstation Name: [id number]
[2020-07-14] MEDS ORDERED: IBUPROFEN 600 MG TAB PO ONE (03:43)
[2020-07-14] MEDS ORDERED: ACETAMINOPHEN 500 MG TAB PO ONE (03:43)
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
[2020-07-14 04:40] VITALS: BP 127/76
== END 2020-07-14 03:45 | disposition home or self-care (01) ==
LOC: ED 23:13
DX: S39.012A Strain of muscle, fascia and tendon of lower back, initial encounter (principal); M62.830 Muscle spasm of back; F31.9 Bipolar disorder, unspecified; F20.9 Schizophrenia, unspecified; F17.200 Nicotine dependence, unspecified, uncomplicated; Z79.899 Other long term (current) drug therapy; W01.0XXA Fall on same level from slipping, tripping and stumbling without subsequent striking against object, initial encounter; Y93.89 Activity, other specified; Y92.89 Other specified places as the place of occurrence of the external cause; Y99.8 Other external cause status
CPT/HCPCS: 72100; 99283

== ENCOUNTER 2020-08-03 12:11 | Emergency (ER) | payer MEDICAID ==
[2020-08-03 14:17] VITALS: BP 134/63
--- NOTE | 2020-08-03 14:24 | Emergency Department Report ---
Chief Complaint: Medical Clearance Stated Complaint: MED REFILL Time Seen by Provider: 08/03/20 14:19 - HPI History of Present Illness: Patient is a 30-year-old female presents emergency room for a prescription for ibuprofen. She states that she takes ibuprofen for her chronic back pain. She states that she was evaluated in the emergency department on 07/14/2020, she was given a prescription for ibuprofen at that time, she states that she lost her prescription and she presents due to wanting a prescription for ibuprofen. She denies any acute fall or injury. Patient is wheelchair-bound. She denies any fever, nausea, vomiting, diarrhea, any other symptoms. Vitals are stable On exam: Non toxic appearing, no acute distress atraumatic, normocephalic normal appearance of the eyes, EOMI, no periorbital edema or ecchymosis moist mucus membranes No respiratory distress, no excessive muscle use A&O x4 Patient is presenting for a prescription for ibuprofen She states that she takes this for chronic back pain She has had no acute trauma She has no other complaints Advised patient that she may take ibuprofen [id number] Discussed the importance of primary care follow-up Discussed return precautions Medical screening examination performed there is no threat to life or limb at this time - Exam Vital Signs: Vital Signs 08/03/20 13:33 Temperature 98.5 F Pulse Rate 91 H Respiratory 18 Rate Blood Pressure 134/63 O2 Sat by Pulse 97 Oximetry MSE screening note: Focused history and physical exam performed. Due to findings the following was ordered: ED Disposition for MSE Clinical Impression: Encounter for medical screening examination Disposition: Z-07 MED SCREENING EXAM-LEFT Is pt being admited?: No Does the pt Need Aspirin: No Condition: Stable Additional Instructions: May take Motrin [id number] as needed for discomfort. Follow-up with your primary care doctor. Return to emergency room for any new or symptoms. Referrals: [facility] [Provider Group] - 2-3 Days Time of Disposition: 14:24 Print Language: KAZAKH
== END 2020-08-03 14:45 | disposition left against medical advice (07) ==
LOC: ED 12:11
DX: Z00.8 Encounter for other general examination (principal); Z53.21 Procedure and treatment not carried out due to patient leaving prior to being seen by health care provider

== ENCOUNTER 2020-08-08 03:28 | Emergency (ER) | payer MEDICAID ==
[2020-08-08 05:40] LABS: HCG Qualitative,Urine Negative (Negative)
[2020-08-08 05:41] LABS: Bilirubin,Urine NEG (Negative); Blood,Urine NEG (Negative); Color,Urine Colorless (Yellow); Protein,Urine <15 mg/dL mg/dL (Negative); Urobilinogen,Urine < 2.0 mg/dL (<2.0)
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
[2020-08-08 08:10] VITALS: BP 128/68
== END 2020-08-08 08:10 | disposition home or self-care (01) ==
LOC: ED 03:28
DX: R10.30 Lower abdominal pain, unspecified (principal); F25.0 Schizoaffective disorder, bipolar type; F25.1 Schizoaffective disorder, depressive type; F17.200 Nicotine dependence, unspecified, uncomplicated; Z79.899 Other long term (current) drug therapy; Z98.890 Other specified postprocedural states
CPT/HCPCS: 81001; 81025

== ENCOUNTER 2021-05-16 18:51 | Emergency (ER) | payer MEDICAID ==
[2021-05-16 19:45] LABS: Basophils # (Auto) 0.1 K/mm3 (0.0-0.1); Basophils % (Auto) 0.8 % (0.0-1.8); Eosinophils % (Auto) 0.3 % (0.0-4.3); Hematocrit 40.9 % (30.3-42.9); Hemoglobin 13.6 gm/dl (10.1-14.3); Lymphocytes # (Auto) 2.2 K/mm3 (1.2-5.4); Lymphocytes % (Auto) 22.5 % (13.4-35.0); Mean Corpuscular HGB Conc 33 % (30-34); Mean Corpuscular Volume 87 fl (79-97); Monocytes # (Auto) 0.7 K/mm3 (0.0-0.8); Monocytes % (Auto) 7.5 % (0.0-7.3); Platelet Count 319 K/mm3 (140-440); Red Blood Count 4.71 M/mm3 (3.65-5.03); Red Cell Distribution Width 13.8 % (13.2-15.2)
[2021-05-16 20:00] LABS: Amphetamine Screen,Urine PRESUMPTIVE NEGATIVE; Benzodiazepines Screen,Urine PRESUMPTIVE NEGATIVE; Cannabinoid Screen,Urine PRESUMPTIVE NEGATIVE; Cocaine Screen,Urine PRESUMPTIVE NEGATIVE; Methadone Screen,Urine PRESUMPTIVE NEGATIVE; Opiate Screen,Urine PRESUMPTIVE NEGATIVE
[2021-05-16 20:05] LABS: Bacteria,Urine 1+ /HPF (Negative); Bilirubin,Urine NEG (Negative); Blood,Urine NEG (Negative); Color,Urine Straw (Yellow); Mucus,Urine FEW /HPF; Protein,Urine <15 mg/dL mg/dL (Negative); Urobilinogen,Urine < 2.0 mg/dL (<2.0)
[2021-05-16 20:05] LABS: Blood Urea Nitrogen 6 mg/dL (7-17); Hemolysis Index 3
[2021-05-16 20:07] LABS: BUN/Creatinine Ratio 9
[2021-05-16] MEDS ORDERED: SULFAMETHOXAZOLE/TRIMETHOPRIM 800/160MG DS TAB PO ONE (21:13)
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
--- NOTE | 2021-05-17 10:26 | Consultation ---
History of Present Illness - Reason for Consult Consult date: 05/17/21 Reason for consult: Mental health evaluation - History of Present Psychiatric Illness The patient is a 31 year old female with history of schizophrenia, and bipolar disorder. In my encounter with the patient, she is calm. The patient presents with disorganized thoughts and flight of ideas. She admits having auditory and visual hallucinations " Aimee was eating babies." PAST PSYCHIATRIC HISTORY Diagnoses: schizophrenia, bipolar Suicide attempts or Self-harm behavior:Yes Prior psychiatric hospitalizations: Multiple Substance Abuse history:Denies Previous psychiatric medications tried: zyprexa Outpatient treatment: yes PAST MEDICAL HISTORY: None reported Family Psychiatric History: None reported or documented SOCIAL HISTORY Marital Status: single Living Arrangements: with family Employment Status: Disabled Access to guns/weapons: None reported Education: 10th grade History of Abuse: None reported Legal History: denies REVIEW OF SYSTEMS Constitutional: Negative for weight loss ENT: Negative for stridor Respiratory: Negative for cough or hemoptysis All other systems reviewed and are negative MENTAL STATUS EXAMINATION General Appearance and Behavior: Age appropriate, good hygiene, wearing appropriate clothes, poor eye contact, calm and cooperative Cooperation: Participating/engaged Psychomotor Behavior: Psychomotor normal Mood: "okay." Affect and affective range: Incongruent with stated mood Thought Process: Illogical Thought Content: Disorganized Speech: Normal rate, volume and rhythm Suicidal Ideation: Unable to assess Homicidal Ideation: Unable to assess Hallucinations: Auditory and visual Delusions: Yes Impulse Control: Limited Insight and Judgment: poor insight and judgment Memory: Normal Attention: impaired Orientation: Alert, oriented Assessment and Plan (1) Schizophrenia TREATMENT 1013 Continue previously prescribed medications Risks, benefits and alternatives of medications discussed with the patient, questions answered and consent obtained from patient. PSYCHOTHERAPY: Supportive psychotherapy provided MEDICAL: Per primary team DELIRIUM PRECAUTIONS: Please re-orient patient frequently, keep lights on during the day, and minimize benzodiazepines and opiates as these medications could worsen patient's confusion. 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 FOLLOW-UP: Will follow. Thank you for the consult. Please contact with any questions and/or concerns. Medications and Allergies Medications and Allergies Allergies Allergy/AdvReac Type Severity Reaction Status Date / Time No Known Allergies Allergy Verified 02/07/20 16:13 Home Medications Medication Instructions Recorded Confirmed Last Taken Type Fesoterodine Fumarate ER (Nf) 1 tab PO DAILY 04/15/20 04/15/20 Unknown History [Toviaz ER (Nf)] Paliperidone Palmitate [Invega 1 syr IM QMONTH 04/15/20 04/15/20 Unknown History Sustenna] traZODone [Desyrel] 100 mg PO HS PRN 04/15/20 04/15/20 Unknown History FLUoxetine [PROzac] 10 mg PO DAILY 10 Days #10 07/01/20 Unknown Rx OLANZapine [Zyprexa] 15 mg PO DAILY 10 Days #10 07/01/20 Unknown Rx Ibuprofen [Motrin] 800 mg PO Q8HR PRN #24 tablet 07/14/20 Unknown Rx Mental Status Exam - Vital signs Last Vital Signs Temp 98.8 F 05/16/21 19:46 Pulse 113 H 05/16/21 19:46 Resp 18 05/16/21 19:46 BP 146/95 05/16/21 19:46 Pulse Ox 100 05/16/21 19:46 Results Result Diagrams: 05/16/21 19:37 05/16/21 19:37 Abnormal lab results 05/16/21 05/16/21 05/16/21 Range/Units 19:21 19:37 19:37 [place] % (Auto) (0.0-7.3) % Sodium (137-145) mmol/L BUN (7-17) mg/dL Urine WBC (Auto) 25.0 H (0.0-6.0) /HPF U Epithel Cells (Auto) 15.0 H (0-13.0) /HPF Salicylates < 0.3 L (2.8-20.0) mg/dL Acetaminophen 5.0 L (10.0-30.0) ug/mL 05/16/21 05/16/21 Range/Units 19:37 19:37 [place] % (Auto) 7.5 H (0.0-7.3) % Sodium 136 L (137-145) mmol/L BUN 6 L (7-17) mg/dL Urine WBC (Auto) (0.0-6.0) /HPF U Epithel Cells (Auto) (0-13.0) /HPF Salicylates (2.8-20.0) mg/dL Acetaminophen (10.0-30.0) ug/mL All other labs normal.
[2021-05-17] MEDS ORDERED: traZODone 50 MG TAB PO PRN (10:30)
[2021-05-17] MEDS ORDERED: NON-FORMULARY EACH (Olanzapine [Zyprexa] 15 MG Tablet) PO SCH (10:30)
--- NOTE | 2021-05-17 11:26 | Event Note ---
Date: 05/17/21 S: Patient refusing vitals this morning O: Patient refused vitals A: Schizophrenia P: 1013/awaiting inpatient psych
--- NOTE | 2021-05-18 09:17 | Progress Note ---
Subjective - Reason for Consult Consult date: 05/18/21 Reason for consult: Psychosis - Chief Complaint Chief complaint: The patient was seen this morning. She continues to be disorganized " I'll sing you to hell, I'm Aimee." REVIEW OF SYSTEMS Constitutional: Negative for weight loss ENT: Negative for stridor Respiratory: Negative for cough or hemoptysis All other systems reviewed and are negative MENTAL STATUS EXAMINATION General Appearance and Behavior: Age appropriate, good hygiene, wearing appropriate clothes, poor eye contact, Cooperation: Psychomotor Behavior: Psychomotor normal Mood: confused Affect and affective range: congruent with stated mood Thought Process: Illogical Thought Content: Disorganized Speech: Normal rate, volume and rhythm Suicidal Ideation: Unable to assess Homicidal Ideation: Unable to assess Hallucinations: Auditory and visual Delusions: Yes Impulse Control: Limited Insight and Judgment: poor insight and judgment Memory: Normal Attention: impaired Orientation: Alert, oriented Assessment and Plan (1) Schizophrenia TREATMENT 1013 Continue previously prescribed medications Risks, benefits and alternatives of medications discussed with the patient, questions answered and consent obtained from patient. PSYCHOTHERAPY: Supportive psychotherapy provided MEDICAL: Per primary team DELIRIUM PRECAUTIONS: Please re-orient patient frequently, keep lights on during the day, and minimize benzodiazepines and opiates as these medications could worsen patient's confusion. 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 FOLLOW-UP: Will follow. Thank you for the consult. Please contact with any questions and/or concerns. Medications and Allergies Mental Status Exam - Vital signs Last Vital Signs Temp 98.6 F 05/17/21 20:23 Pulse 93 H 05/17/21 20:23 Resp 18 05/17/21 20:23 BP 115/73 05/17/21 20:23 Pulse Ox 98 05/17/21 20:23
[2021-05-18] MEDS ORDERED: FESOTERODINE FUMARATE 8 MG PO SCH (10:00)
--- NOTE | 2021-05-18 11:55 | Emergency Department Report ---
Blank Doc - Documentation Documentation: 31-year-old female continues to be disorganized on 1013 compliant with oral me dication. Patient has been accepted however, they are awaiting negative confirmation. UA hCG ordered. I have added serum hCG to expedite result
[2021-05-19 09:17] VITALS: BP 114/77
== END 2021-05-19 09:17 ==
LOC: EEVIPCON 18:51 → ED 18:51
DX: R45.851 Suicidal ideations (principal); F31.81 Bipolar II disorder; Z98.890 Other specified postprocedural states; F17.200 Nicotine dependence, unspecified, uncomplicated; Z20.822 Contact with and (suspected) exposure to COVID-19
CPT/HCPCS: 36415; 80048; 80307; 81001; 84703; 85025; 87086; 99284; U0003; 80320; G0480